=== PATIENT | female | born 1975 | race Two or more races ===

== ENCOUNTER 2016-12-13 15:37 | Outpatient (CLI) | payer OTHER ==
[2016-12-13] MEDS ORDERED: PREN1TAB13 PO (15:55)
[2016-12-13] MEDS ORDERED: FER325 PO (15:55)
--- NOTE | 2016-12-13 16:24 | RADRPT ---
PROCEDURE: OB ultrasound CLINICAL INDICATION: Gestational diabetes TECHNIQUE: Multiple transverse and longitudinal OB images of the pelvis were obtained. The images were reviewed on a high-resolution PACS workstation. COMPARISON: None FINDINGS: A single live intrauterine is seen. The presentation is vertex. The placenta is grade 2 a nd posterior in location. No evidence of placenta abruption or previa is seen. The heart rate is 145 beats per minute. The amniotic fluid index is 12.8 cm. movement 2 tone 2 breathing 2 Amniotic fluid 2 IMPRESSION: Biophysical profile of 10/04. RPTAT: HPNM Physician Randy Date Time Electronically viewed and signed by Physician Randy on 12/13/2016 16:23 /
--- NOTE | 2016-12-13 17:14 | TRIAGE ---
OB Triage Datetime Report Generated by CPN: 12/13/2016 17:14 Datetime: 12/13/2016 16:59 Stage of : OB Triage Maternal Assessment Level of Consciousness: Fully Conscious Labor Evaluation Frequency: 1UC/HR Monitor Mode: External Duration (sec)2399: 100 Quality: Mild Resting Tone [place]: Relaxed Heart Rate FHR Baseline Rate: 135 Monitor Mode: External US Variability: Moderate 6-25 bpm Accelerations: 15X15 Decelerations: None Category: Category I Pain Assessment Pain Scale: 0 Pain Goal: 3 Vaginal Exam Membrane Status: Intact Vaginal Bleeding: None Datetime: 12/13/2016 16:17 Monitor Mode: External Monitor Mode: External US Datetime: 12/13/2016 15:51 Assessment Type: Triage Maternal Assessment Level of Consciousness: Fully Conscious DTR's/Clonus: DTRs 2+; No Clonus Headache: Denies Blurred Vision: No Respiratory Effort: Unlabored; Regular Rhythm; Equal Expansion Breath Sounds, Left: Clear and Equal Breath Sounds, Right: Clear and Equal Nausea/Vomiting: Denies RUQ Epigastric Pain: Denies Lower Extremities Edema: None Degree: None Upper Extremities Edema: None Degree: None Facial Edema: None Fall Risk Assessment History of Falling: (0) No Secondary Diagnosis: (0) No Ambulatory Aid: (0) Bedrest/Nurse Assist IV Therapy: (0) No Gait: (0) Normal/Bedrest/Immobile Mental Status: (0) Oriented to Own Ability Fall Score: 0 Fall Risk Score Definition: No Risk: No action required Datetime: 12/13/2016 15:49 Time of Arrival: 12/13/2016 15:25 EGA: 31.6 Arrived By: Ambulatory Arrived From: Home Chief Complaint: PT HERE FOR NST/BPP FOR GDM Movement: Present Contractions: Denies/Absent Rupture of Membranes: Denies Vaginal Bleeding: None Vaginal Discharge: Denies Recent Sexual Intercouse: Denies Abdominal Trauma: Not Applicable Patient Complaints: None Time Provider Notified: 12/13/2016 15:25 Provider Notified: ABUSLEME Initial Plan: NST/BPP Datetime: 12/13/2016 15:47 Monitor Mode: External Monitor Mode: External US
--- NOTE | 2016-12-13 17:44 | PN ---
Triage Information Date/Time Reason for visit: NST BPP Weeks of Gestation 31 wks /Para 4/3 Diabetes: gestational Diabetes management: diet controlled Hypertention: none Objective Heart Rate: 140's Contractions: None Disposition: Discharge Assessment/Plan NST reactive bpp 10/04 RAFAEL TEJADA M.D. Dec 13, 2016 17:43
== END 2016-12-13 17:20 | disposition home or self-care (01) ==
LOC: OBT 15:37 → L-D 15:39 → OBT 17:20
PROVIDERS: ATTEND Obstetrics & Gynecology
DX: O24.415 Gestational diabetes mellitus in pregnancy, controlled by oral hypoglycemic drugs (principal); Z3A.31 31 weeks gestation of pregnancy
CPT/HCPCS: 76818; Z7500; G0463

== ENCOUNTER 2016-12-20 11:50 | Outpatient (CLI) | payer OTHER ==
[~2016-12-20] VITALS: Ht 157.5 cm; Wt 78.5 kg
[~2016-12-20 11:50] MED LIST: FER325 PO; PREN1TAB13 PO
[2016-12-20 12:05] VITALS: Ht 157.5 cm; Wt 78.5 kg
[2016-12-20 12:06] VITALS: BP 113/67; PULSE 82; RESP 18
--- NOTE | 2016-12-20 13:16 | RADRPT ---
PROCEDURE: OB ultrasound for biophysical profile CLINICAL INDICATION: Decreased movement TECHNIQUE: Multiple sonographic images of the pelvis were obtained. Transabdominal views of the g ravid uterus are available for review. The images were reviewed on a PACS workstation. COMPARISON: Biophysical profile dated 12/13/2016 FINDINGS: breathing movement = 2/2 tone = 2/2 motion = 2/2 CURTIS = 2/2 CURTIS = 14.3 cm Single live intrauterine with cardiac activity of 166 bpm. position is cephal ic. The placenta is posterior. IMPRESSION: 1. Single live intrauterine gestation. 2. Biophysical profile = 8. 3. CURTIS = 14.3 cm. RPTAT: HH .Jennifer Gomez MD, Date Time Electronically viewed and signed by .Jennifer Gomez MD, on 12/20/2016 13:16 .G/
--- NOTE | 2016-12-20 14:07 | PN ---
Triage Information Date/Time Reason for visit: NST/BPP Weeks of Gestation 33+ /Para ... Diabetes: gestational Diabetes management: diet controlled Hypertention: none Objective Vital Signs Date Time Temp Pulse Resp B/P Pulse Ox O2 Delivery O2 Flow Rate FiO2 12/20/16 12:06 98.2 82 18 113/67 Room Air Heart Rate: 140's Contractions: None Disposition: Discharge Assessment/Plan Follow up in 1 weeks for NST BPP Patient 's private physician is following her up Precautions discussed with patient RAFAEL TEJADA M.D. Dec 20, 2016 14:07
--- NOTE | 2016-12-20 17:34 | TRIAGE ---
OB Triage Datetime Report Generated by CPN: 12/20/2016 17:34 Datetime: 12/20/2016 13:18 Labor Evaluation Monitor Mode: External Resting Tone [place]: Relaxed Heart Rate FHR Baseline Rate: 135 Monitor Mode: External US FHR Baseline Changes: No Baseline Change Variability: Moderate 6-25 bpm Accelerations: 15X15 Decelerations: None Category: Category I Comments: NST DONE Pain Assessment Pain Presence: None/Denies Datetime: 12/20/2016 12:52 Time of Arrival: 12/20/2016 11:45 EGA: 32.6 Arrived By: Ambulatory Arrived From: Home Chief Complaint: Repeat BPP/NST Movement: Present Contractions: Denies/Absent Rupture of Membranes: Denies Vaginal Discharge: Denies Recent Sexual Intercouse: Denies Abdominal Trauma: Not Applicable Patient Complaints: None Time Provider Notified: 12/20/2016 13:54 Provider Notified: Abusleme Initial Plan: Repeat BPP/NST Datetime: 12/20/2016 12:50 Comments: Pt has been on the monitor since 1200 but monitor not connecting with desktop CPN. Kuldeep from [employer] at bedside and fixed issue now. FHR has been CAT throughout the time pt has been o n the monitor Datetime: 12/20/2016 12:15 Stage of : Antepartum Assessment Type: Triage Maternal Assessment Level of Consciousness: Fully Conscious DTR's/Clonus: DTRs 2+; No Clonus Headache: Denies Blurred Vision: No Respiratory Effort: Unlabored; Regular Rhythm; Equal Expansion Breath Sounds, Left: Clear and Equal Breath Sounds, Right: Clear and Equal Nausea/Vomiting: Denies RUQ Epigastric Pain: Denies Lower Extremities Edema: None Degree: None Upper Extremities Edema: None Degree: None Facial Edema: None Temperature Route: Oral Fall Risk Assessment History of Falling: (0) No Secondary Diagnosis: (0) No Ambulatory Aid: (0) Bedrest/Nurse Assist IV Therapy: (0) No Gait: (0) Normal/Bedrest/Immobile Mental Status: (0) Oriented to Own Ability Fall Score: 0 Fall Risk Score Definition: No Risk: No action required Datetime: 12/13/2016 15:51 Fall Score: 0 Fall Risk Score Definition: No Risk: No action required Datetime: 12/13/2016 15:49 EGA: 31.6
== END 2016-12-20 14:10 | disposition home or self-care (01) ==
LOC: OBG 11:50 → OBT 11:50
PROVIDERS: ATTEND Obstetrics & Gynecology
DX: O24.410 Gestational diabetes mellitus in pregnancy, diet controlled (principal); Z3A.33 33 weeks gestation of pregnancy
CPT/HCPCS: 76818

== ENCOUNTER 2016-12-27 08:44 | Outpatient (CLI) | payer OTHER ==
[~2016-12-27] VITALS: Ht 157.5 cm; Wt 79.3 kg
[2016-12-27 09:02] VITALS: Ht 157.5 cm; Wt 79.3 kg
[2016-12-27 09:03] VITALS: BP 114/62; PULSE 85; RESP 16
--- NOTE | 2016-12-27 09:30 | RADRPT ---
PROCEDURE: OB ultrasound for biophysical profile CLINICAL INDICATION: Gestational diabetes TECHNIQUE: Multiple sonographic images of the pelvis were obtained. Transabdominal views of the g ravid uterus are available for review. The images were reviewed on a PACS workstation. COMPARISON: Biophysical profile dated 12/20/2016 FINDINGS: breathing movement = 2/2 tone = 2/2 motion = 2/2 CURTIS = 2/2 CURTIS = 14.8 cm Single live intrauterine with cardiac activity of 139 bpm. position is cephal ic. The placenta is posterior. IMPRESSION: 1. Single live intrauterine gestation. 2. Biophysical profile = 10/04. 3. CURTIS = 14.8 cm. RPTAT: HH .Jennifer Gomez MD, Date Time Electronically viewed and signed by .Jennifer Gomez MD, on 12/27/2016 09:29 .G/
--- NOTE | 2016-12-27 10:21 | PN ---
Triage Information Date/Time Reason for visit: NST BPP Weeks of Gestation 33+ /Para 4/3 Diabetes: gestational Diabetes management: diet controlled Hypertention: none Objective Vital Signs Date Time Temp Pulse Resp B/P Pulse Ox O2 Delivery O2 Flow Rate FiO2 12/27/16 09:03 98.1 85 16 114/62 Heart Rate: 140's Contractions: None Disposition: Discharge Assessment/Plan Reactive NST &BPP 10/04 Discharged with precautions Precautions reviewed with patient RAFAEL TEJADA M.D. Dec 27, 2016 10:21
--- NOTE | 2016-12-27 10:58 | TRIAGE ---
OB Triage Datetime Report Generated by CPN: 12/27/2016 10:58 Datetime: 12/27/2016 09:13 Heart Rate FHR Baseline Rate: 135 Monitor Mode: External US Variability: Moderate 6-25 bpm Accelerations: 15X15 Decelerations: None Category: Category I Comments: nst reactive Datetime: 12/27/2016 09:01 Assessment Type: Triage Maternal Assessment Level of Consciousness: Fully Conscious DTR's/Clonus: DTRs 2+; No Clonus Headache: Denies Blurred Vision: No Respiratory Effort: Unlabored; Regular Rhythm; Equal Expansion Breath Sounds, Left: Clear and Equal Breath Sounds, Right: Clear and Equal Nausea/Vomiting: Denies RUQ Epigastric Pain: Denies Lower Extremities Edema: None Degree: None Upper Extremities Edema: None Degree: None Facial Edema: None Fall Risk Assessment History of Falling: (0) No Secondary Diagnosis: (0) No Ambulatory Aid: (0) Bedrest/Nurse Assist IV Therapy: (0) No Gait: (0) Normal/Bedrest/Immobile Mental Status: (0) Oriented to Own Ability Fall Score: 0 Fall Risk Score Definition: No Risk: No action required Datetime: 12/27/2016 09:00 Time of Arrival: 12/27/2016 08:35 EGA: 33.6 Arrived By: Ambulatory Arrived From: Home Chief Complaint: Follow up for nst and bpp due to GDM Movement: Present Contractions: Denies/Absent Rupture of Membranes: Denies Vaginal Bleeding: None Vaginal Discharge: Denies Recent Sexual Intercouse: Denies Abdominal Trauma: Not Applicable Patient Complaints: None Additional Patient Complaints: fbs 85 Initial Plan: NST, BPP Datetime: 12/20/2016 12:52 EGA: 32.6 Datetime: 12/20/2016 12:15 Fall Score: 0 Fall Risk Score Definition: No Risk: No action required Datetime: 12/13/2016 15:51 Fall Score: 0 Fall Risk Score Definition: No Risk: No action required Datetime: 12/13/2016 15:49 EGA: 31.6
== END 2016-12-27 10:20 | disposition home or self-care (01) ==
LOC: OBT 08:44 → L-D 08:44 → OBT 10:20
PROVIDERS: ATTEND Obstetrics & Gynecology
DX: O24.410 Gestational diabetes mellitus in pregnancy, diet controlled (principal); Z3A.33 33 weeks gestation of pregnancy
CPT/HCPCS: 76818; Z7500; G0463

== ENCOUNTER 2017-01-03 09:37 | Outpatient (CLI) | payer OTHER ==
[~2017-01-03] VITALS: Ht 160 cm; Wt 80.1 kg
[2017-01-03 09:43] VITALS: BP 125/75; PULSE 85; RESP 18; Ht 160 cm; Wt 80.1 kg
--- NOTE | 2017-01-03 10:28 | RADRPT ---
PROCEDURE: US OB biophysical profile. CLINICAL INDICATION: evaluation TECHNIQUE: Multiple sonographic images of the pelvis were obtained. The images were reviewed on a PACS workstation. COMPARISON: No prior studies are available for comparison. FINDINGS: There is a single viable intrauterine gestation. Cardiac activity is present with 159 beats per min [place]. There is a vertex presentation. The placenta is fundal and left lateral in location. There is no evidence of placental abruption. There is a normal amount of amniotic fluid with an CURTIS = 13.6 cm. Biophysical profile: movement 2/2 tone 2/2. breathing 2/2 CURTIS 2/2 Total 10/04 RPTAT: AA . IMPRESSION: Normal biophysical profile. Physician Lucita Date Time Electronically viewed and signed by Physician Lucita on 01/03/2017 10:27 /
--- NOTE | 2017-01-03 10:53 | PN ---
Triage Information Date/Time Reason for visit: NST BPP Weeks of Gestation 34+ /Para .. Diabetes: gestational Diabetes management: diet controlled Hypertention: none Objective Vital Signs Date Time Temp Pulse Resp B/P Pulse Ox O2 Delivery O2 Flow Rate FiO2 01/03/17 09:43 98.2 85 18 125/75 99 Room Air Heart Rate: 140's Contractions: None Disposition: Discharge Assessment/Plan NST reassuring BPP 10/04 Instructions given,F/u with provider RAFAEL TEJADA M.D. Jan 03, 2017 10:53
--- NOTE | 2017-01-03 11:22 | TRIAGE ---
OB Triage Datetime Report Generated by CPN: 01/03/2017 11:22 Datetime: 01/03/2017 11:03 Stage of : OB Triage Maternal Assessment Level of Consciousness: Fully Conscious DTR's/Clonus: DTRs 1+ Headache: Denies Breath Sounds, Left: Clear and Equal Breath Sounds, Right: Clear and Equal Labor Evaluation Frequency: 0 Monitor Mode: External Resting Tone [employer]: Relaxed Heart Rate FHR Baseline Rate: 140 Monitor Mode: External US Variability: Moderate 6-25 bpm Accelerations: 15X15 Decelerations: None Pain Assessment Pain Scale: 0 Pain Presence: None/Denies Pain Type: N/A Pain Goal: 3 Vaginal Exam Membrane Status: Intact Datetime: 01/03/2017 10:57 Stage of : OB Triage Maternal Assessment Level of Consciousness: Fully Conscious DTR's/Clonus: DTRs 1+ Headache: Denies Breath Sounds, Left: Clear and Equal Breath Sounds, Right: Clear and Equal Nausea/Vomiting: Denies RUQ Epigastric Pain: Denies Labor Evaluation Frequency: 0 Monitor Mode: External Resting Tone [employer]: Relaxed Heart Rate FHR Baseline Rate: 140 Monitor Mode: External US Variability: Moderate 6-25 bpm Accelerations: 15X15 Decelerations: None Category: Category I Pain Assessment Pain Scale: 0 Pain Presence: None/Denies Pain Type: N/A Pain Goal: 3 Vaginal Exam Membrane Status: Intact Datetime: 01/03/2017 10:13 Stage of : OB Triage Maternal Assessment Level of Consciousness: Fully Conscious DTR's/Clonus: DTRs 1+ Headache: Denies Breath Sounds, Left: Clear and Equal Breath Sounds, Right: Clear and Equal Nausea/Vomiting: Denies RUQ Epigastric Pain: Denies Labor Evaluation Frequency: 0 Monitor Mode: External Resting Tone [employer]: Relaxed Heart Rate FHR Baseline Rate: 140 Monitor Mode: External US Variability: Moderate 6-25 bpm Accelerations: 15X15 Decelerations: None Category: Category I Pain Assessment Pain Scale: 0 Pain Presence: None/Denies Pain Type: N/A Pain Goal: 3 Vaginal Exam Membrane Status: Intact Datetime: 01/03/2017 10:03 Maternal Assessment Level of Consciousness: Fully Conscious DTR's/Clonus: DTRs 1+ Headache: Denies Blurred Vision: No Respiratory Effort: Unlabored Breath Sounds, Left: Clear and Equal Breath Sounds, Right: Clear and Equal Nausea/Vomiting: Denies RUQ Epigastric Pain: Denies Facial Edema: None Labor Evaluation Frequency: 0 Monitor Mode: External Resting Tone [employer]: Relaxed Heart Rate FHR Baseline Rate: 140 Monitor Mode: External US Variability: Moderate 6-25 bpm Accelerations: 15X15 Decelerations: None Category: Category I Pain Assessment Pain Scale: 0 Pain Presence: None/Denies Pain Type: N/A Pain Goal: 3 Vaginal Exam Membrane Status: Intact Datetime: 01/03/2017 09:42 Assessment Type: Triage Maternal Assessment Level of Consciousness: Fully Conscious DTR's/Clonus: DTRs 2+; No Clonus Headache: Denies Blurred Vision: No Respiratory Effort: Unlabored; Regular Rhythm; Equal Expansion Breath Sounds, Left: Clear and Equal Breath Sounds, Right: Clear and Equal Nausea/Vomiting: Denies RUQ Epigastric Pain: Denies Lower Extremities Edema: None Degree: None Upper Extremities Edema: None Degree: None Facial Edema: None Fall Risk Assessment History of Falling: (0) No Secondary Diagnosis: (0) No Ambulatory Aid: (0) Bedrest/Nurse Assist IV Therapy: (0) No Gait: (0) Normal/Bedrest/Immobile Mental Status: (0) Oriented to Own Ability Fall Score: 0 Fall Risk Score Definition: No Risk: No action required Datetime: 01/03/2017 09:33 Time of Arrival: 01/03/2017 09:33 EGA: 34.6 Arrived By: Ambulatory Arrived From: Home Chief Complaint: NST AND BPP FOR GDM Movement: Present Contractions: Denies/Absent Rupture of Membranes: Denies Vaginal Discharge: Denies Recent Sexual Intercouse: Denies Abdominal Trauma: Not Applicable Additional Patient Complaints: NONE Time Provider Notified: 01/03/2017 09:45 Provider Notified: ABUSELEME Initial Plan: NST AND BPP Datetime: 12/27/2016 09:01 Fall Score: 0 Fall Risk Score Definition: No Risk: No action required Datetime: 12/27/2016 09:00 EGA: 33.6 Datetime: 12/20/2016 12:52 EGA: 32.6 Datetime: 12/20/2016 12:15 Fall Score: 0 Fall Risk Score Definition: No Risk: No action required Datetime: 12/13/2016 15:51 Fall Score: 0 Fall Risk Score Definition: No Risk: No action required Datetime: 12/13/2016 15:49 EGA: 31.6
== END 2017-01-03 11:05 | disposition home or self-care (01) ==
LOC: L-D 09:37 → OBT 09:37
PROVIDERS: ATTEND Obstetrics & Gynecology
DX: O24.410 Gestational diabetes mellitus in pregnancy, diet controlled (principal); Z3A.34 34 weeks gestation of pregnancy
CPT/HCPCS: 76818; Z7500; G0463

== ENCOUNTER 2017-01-10 09:20 | Outpatient (CLI) | payer OTHER ==
[~2017-01-10] VITALS: Ht 162.6 cm; Wt 81.4 kg
[2017-01-10 09:52] VITALS: BP 123/63; PULSE 90; Ht 162.6 cm; Wt 81.4 kg
--- NOTE | 2017-01-10 10:45 | RADRPT ---
PROCEDURE: US OB biophysical profile. CLINICAL INDICATION: Biophysical profile. History of gestational diabetes TECHNIQUE: Multiple sonographic images of the pelvis were obtained. The images were reviewed on a PACS workstation. COMPARISON: January 03, 2017 FINDINGS: There is a single live intrauterine , in cephalic presentation. A normal heart rate i s identified measuring 141 beats per minute. The amniotic fluid index is within normal limits measur ing 15.8 cm. The placenta is grade II, located fundally Biophysical profile: movement 2/2 tone 2/2. breathing 2/2 CURTIS 2/2 Total 8 IMPRESSION: 1. Biophysical profile score of 8/8. 2. Single live intrauterine in cephalic presentation with normal heart rate of 141 b pm. 3. Normal amniotic fluid index of 15.8 cm. Physician Konrad Date Time Electronically viewed and signed by Physician Konrad on 01/10/2017 10:45 JL/
--- NOTE | 2017-01-10 12:47 | TRIAGE ---
OB Triage Datetime Report Generated by CPN: 01/10/2017 12:46 Datetime: 01/10/2017 11:51 Stage of : OB Triage Datetime: 01/10/2017 11:46 Stage of : OB Triage Datetime: 01/10/2017 11:44 Bedside Blood Glucose: 102 Datetime: 01/10/2017 11:37 Stage of : OB Triage Datetime: 01/10/2017 11:21 Labor Evaluation Frequency: 0 Monitor Mode: External Pattern: Normal: <= 5 Contractions in 10 Minutes Resting Tone [place]: Relaxed Heart Rate FHR Baseline Rate: 145 Monitor Mode: External US Variability: Moderate 6-25 bpm Accelerations: 10X10 Decelerations: None Category: Category I Pain Assessment Pain Scale: 0 Pain Presence: None/Denies Pain Type: N/A Pain Goal: 3 Pain Relief Measures: Comfort Measures Datetime: 01/10/2017 09:48 Stage of : OB Triage Assessment Type: Triage Maternal Assessment Level of Consciousness: Fully Conscious DTR's/Clonus: DTRs 2+; No Clonus Headache: Denies Blurred Vision: No Respiratory Effort: Unlabored; Regular Rhythm; Equal Expansion Breath Sounds, Left: Clear and Equal Breath Sounds, Right: Clear and Equal Nausea/Vomiting: Denies RUQ Epigastric Pain: Denies Facial Edema: None Temperature Route: Axillary Fall Risk Assessment History of Falling: (0) No Secondary Diagnosis: (0) No Ambulatory Aid: (0) Bedrest/Nurse Assist IV Therapy: (0) No Gait: (0) Normal/Bedrest/Immobile Mental Status: (0) Oriented to Own Ability Fall Score: 0 Fall Risk Score Definition: No Risk: No action required Labor Evaluation Frequency: 0 Monitor Mode: External Resting Tone [place]: Relaxed Heart Rate FHR Baseline Rate: 135 Monitor Mode: External US Variability: Moderate 6-25 bpm Accelerations: 10X10 Decelerations: None Category: Category I Pain Assessment Pain Scale: 0 Pain Presence: None/Denies Pain Type: N/A Pain Goal: 3 Pain Relief Measures: Comfort Measures Datetime: 01/10/2017 09:47 Time of Arrival: 01/10/2017 09:14 EGA: 35.6 Arrived By: Ambulatory Arrived From: Home Chief Complaint: FOLLOW UP NST/BPP GDM, DENIES LEAKING, BLEEDING OR UC'S Movement: Present Contractions: Denies/Absent Rupture of Membranes: Denies Vaginal Bleeding: None Vaginal Discharge: Denies Recent Sexual Intercouse: Denies Abdominal Trauma: Not Applicable Patient Complaints: None Time Provider Notified: 01/10/2017 11:46 Provider Notified: ABUSLEME Initial Plan: MONITOR, BPP/CURTIS Datetime: 01/03/2017 11:03 Nausea/Vomiting: Denies RUQ Epigastric Pain: Denies Heart Rate FHR Baseline Rate: 150 Datetime: 01/03/2017 10:57 Heart Rate FHR Baseline Rate: 150 Datetime: 01/03/2017 09:42 Fall Score: 0 Fall Risk Score Definition: No Risk: No action required Datetime: 01/03/2017 09:33 EGA: 34.6 Datetime: 12/27/2016 09:01 Fall Score: 0 Fall Risk Score Definition: No Risk: No action required Datetime: 12/27/2016 09:00 EGA: 33.6 Datetime: 12/20/2016 12:52 EGA: 32.6 Datetime: 12/20/2016 12:15 Fall Score: 0 Fall Risk Score Definition: No Risk: No action required Datetime: 12/13/2016 15:51 Fall Score: 0 Fall Risk Score Definition: No Risk: No action required Datetime: 12/13/2016 15:49 EGA: 31.6
--- NOTE | 2017-01-10 14:39 | PN ---
Triage Information Date/Time Reason for visit: NST BPP Weeks of Gestation 35+ /Para 4/3 Diabetes: gestational Diabetes management: diet controlled Hypertention: none Objective Vital Signs Date Time Temp Pulse Resp B/P Pulse Ox O2 Delivery O2 Flow Rate FiO2 01/10/17 09:52 98.0 90 123/63 Contractions: None Results/Medications Results 24 hrs Laboratory Tests Test 01/10/17 11:44 Bedside Glucose 102 Disposition: Discharge RAFAEL TEJADA M.D. Jan 10, 2017 14:39
--- NOTE | 2017-01-10 14:41 | PN ---
Triage Information Date/Time Reason for visit: DFM Weeks of Gestation 28+ /Para 5/4 Diabetes: none Hypertention: none Objective Vital Signs Date Time Temp Pulse Resp B/P Pulse Ox O2 Delivery O2 Flow Rate FiO2 01/10/17 09:52 98.0 90 123/63 Heart Rate: 140's Contractions: None Results/Medications Results 24 hrs Laboratory Tests Test 01/10/17 11:44 Bedside Glucose 102 Disposition: Discharge Assessment/Plan +FM at this time No VB No LOF BPP 10/04 Discharged with precautions Patient's questions answered RAFAEL TEJADA M.D. Jan 10, 2017 14:41
== END 2017-01-10 12:00 | disposition home or self-care (01) ==
LOC: L-D 09:20 → OBT 09:20
PROVIDERS: ATTEND Obstetrics & Gynecology
DX: O24.410 Gestational diabetes mellitus in pregnancy, diet controlled (principal); O09.523 Supervision of elderly multigravida, third trimester; Z3A.35 35 weeks gestation of pregnancy
CPT/HCPCS: 76818; 82962; Z7500; G0463

== ENCOUNTER 2017-01-17 12:57 | Outpatient (CLI) | payer OTHER ==
[~2017-01-17] VITALS: Ht 162.6 cm; Wt 82.0 kg
[2017-01-17 13:15] VITALS: Ht 162.6 cm; Wt 82.0 kg
[2017-01-17 13:16] VITALS: BP 121/78; PULSE 85; RESP 18
--- NOTE | 2017-01-17 13:59 | RADRPT ---
PROCEDURE: US OB biophysical profile. CLINICAL INDICATION: decreased movements, GDM TECHNIQUE: Multiple sonographic images of the pelvis were obtained. The images were reviewed on a PACS workstation. COMPARISON: US PELVIS 01/10/2017 FINDINGS: There is a single viable intrauterine gestation. Cardiac activity is present with 137 beats per min [place]. There is a vertex presentation. The placenta is fundal left. There is no evidence of placental abruption. There is a normal amount of amniotic fluid with an CURTIS = 12.8 cm. Biophysical profile: movement 2/2 tone 2/2. breathing 2/2 CURTIS 2/2 Total 10/04 RPTAT: AA . IMPRESSION: Normal biophysical profile. . .Prabhjot Solares MD, MD Date Time Electronically viewed and signed by .Prabhjot Solares MD, on 01/17/2017 13:59 .S/
--- NOTE | 2017-01-17 15:14 | PN ---
Triage Information Date/Time Reason for visit: NST BPP Weeks of Gestation 36+ /Para .. Diabetes: gestational Diabetes management: diet controlled Hypertention: none Objective Vital Signs Date Time Temp Pulse Resp B/P Pulse Ox O2 Delivery O2 Flow Rate FiO2 01/17/17 13:16 97.8 85 18 121/78 98 Room Air Heart Rate: 140's Contractions: None Disposition: Discharge RAFAEL TEJADA M.D. Jan 17, 2017 15:14
--- NOTE | 2017-01-17 15:14 | TRIAGE ---
OB Triage Datetime Report Generated by CPN: 01/17/2017 15:14 Datetime: 01/17/2017 14:00 Stage of : OB Triage Maternal Assessment Level of Consciousness: Fully Conscious Labor Evaluation Frequency: 3UC/HR Monitor Mode: External Duration (sec)2399: 80-120 Quality: Mild Resting Tone [place]: Relaxed Heart Rate FHR Baseline Rate: 145 Monitor Mode: External US Variability: Moderate 6-25 bpm Accelerations: 15X15 Decelerations: None Category: Category I Pain Assessment Pain Scale: 0 Pain Goal: 3 Vaginal Exam Membrane Status: Intact Vaginal Bleeding: None Datetime: 01/17/2017 13:11 Assessment Type: Triage Maternal Assessment Level of Consciousness: Fully Conscious DTR's/Clonus: DTRs 2+; No Clonus Headache: Denies Blurred Vision: No Respiratory Effort: Unlabored; Regular Rhythm; Equal Expansion Breath Sounds, Left: Clear and Equal Breath Sounds, Right: Clear and Equal Nausea/Vomiting: Denies RUQ Epigastric Pain: Denies Lower Extremities Edema: None Degree: None Upper Extremities Edema: None Degree: None Facial Edema: None Fall Risk Assessment History of Falling: (0) No Secondary Diagnosis: (0) No Ambulatory Aid: (0) Bedrest/Nurse Assist IV Therapy: (0) No Gait: (0) Normal/Bedrest/Immobile Mental Status: (0) Oriented to Own Ability Fall Score: 0 Fall Risk Score Definition: No Risk: No action required Datetime: 01/17/2017 13:10 Time of Arrival: 01/17/2017 12:51 EGA: 36.6 Arrived By: Ambulatory Arrived From: Home Chief Complaint: pt here for NST/BPP FOR A1DM Movement: Present Contractions: Denies/Absent Rupture of Membranes: Denies Vaginal Bleeding: None Vaginal Discharge: Denies Recent Sexual Intercouse: Denies Abdominal Trauma: Not Applicable Patient Complaints: None Time Provider Notified: 01/17/2017 15:00 Provider Notified: ABUSLEME Initial Plan: NST/BPP Datetime: 01/17/2017 13:08 Monitor Mode: External Monitor Mode: External US Datetime: 01/10/2017 09:48 Fall Score: 0 Fall Risk Score Definition: No Risk: No action required Datetime: 01/10/2017 09:47 EGA: 35.6 Datetime: 01/03/2017 09:42 Fall Score: 0 Fall Risk Score Definition: No Risk: No action required Datetime: 01/03/2017 09:33 EGA: 34.6 Datetime: 12/27/2016 09:01 Fall Score: 0 Fall Risk Score Definition: No Risk: No action required Datetime: 12/27/2016 09:00 EGA: 33.6 Datetime: 12/20/2016 12:52 EGA: 32.6 Datetime: 12/20/2016 12:15 Fall Score: 0 Fall Risk Score Definition: No Risk: No action required Datetime: 12/13/2016 15:51 Fall Score: 0 Fall Risk Score Definition: No Risk: No action required Datetime: 12/13/2016 15:49 EGA: 31.6
== END 2017-01-17 15:25 | disposition home or self-care (01) ==
LOC: OBT 12:57 → L-D 12:58 → OBT 15:25
PROVIDERS: ATTEND Obstetrics & Gynecology
DX: O24.410 Gestational diabetes mellitus in pregnancy, diet controlled (principal); Z3A.36 36 weeks gestation of pregnancy
CPT/HCPCS: 76818; Z7500; G0463

== ENCOUNTER 2017-01-26 11:34 | Outpatient (CLI) | payer OTHER ==
[~2017-01-26] VITALS: Ht 162.6 cm; Wt 83.4 kg
[~2017-01-26 11:34] MED LIST changes: -FER325 PO
[2017-01-26 12:12] VITALS: BP 130/79; PULSE 77; RESP 18; Ht 162.6 cm; Wt 83.4 kg
--- NOTE | 2017-01-26 12:58 | RADRPT ---
PROCEDURE: US OB biophysical profile. CLINICAL INDICATION: Biophysical profile TECHNIQUE: Multiple sonographic images of the pelvis were obtained. The images were reviewed on a PACS workstation. COMPARISON: None FINDINGS: There is a single live intrauterine , in cephalic presentation. A normal heart rate i s identified measuring 140 beats per minute. The amniotic fluid index is within normal limits measur ing 12.2 cm. Biophysical profile: movement 2/2 tone 2/2. breathing 2/2 CURTIS 2/2 Total 10/04 IMPRESSION: 1. Biophysical profile score of 8/8. 2. Single live intrauterine in cephalic presentation with normal heart rate of 140 b pm. 3. Normal amniotic fluid index of 12.2 cm. RPTAT: AAPP Physician Konrad Date Time Electronically viewed and signed by Physician Konrad on 01/26/2017 12:58 IZZY/
[2017-01-26] MEDS ORDERED: LACTATED RINGER'S 1,000 ML IV ONE (15:30)
--- NOTE | 2017-01-26 17:15 | TRIAGE ---
OB Triage Datetime Report Generated by CPN: 01/26/2017 17:15 Datetime: 01/26/2017 16:30 Stage of : OB Triage Maternal Assessment Level of Consciousness: Fully Conscious Labor Evaluation Frequency: 3-9 Monitor Mode: External Duration (sec)2399: 90-120 Quality: Mild Resting Tone [place]: Relaxed Heart Rate FHR Baseline Rate: 135 Monitor Mode: External US Variability: Moderate 6-25 bpm Accelerations: 15X15 Decelerations: None Pain Assessment Pain Scale: 0 Pain Goal: 3 Membrane Status: Intact Vaginal Bleeding: None Datetime: 01/26/2017 15:30 Stage of : OB Triage Maternal Assessment Level of Consciousness: Fully Conscious Labor Evaluation Frequency: 2-8 Monitor Mode: External Duration (sec)2399: 90-120 Quality: Mild Resting Tone [place]: Relaxed Heart Rate FHR Baseline Rate: 135 Monitor Mode: External US Variability: Moderate 6-25 bpm Accelerations: 15X15 Decelerations: None Pain Assessment Pain Scale: 0 Pain Goal: 3 Membrane Status: Intact Vaginal Bleeding: None Datetime: 01/26/2017 14:30 Stage of : OB Triage Maternal Assessment Level of Consciousness: Fully Conscious Labor Evaluation Frequency: 2-7 Monitor Mode: External Duration (sec)2399: 60-110 Quality: Mild Resting Tone [place]: Relaxed Heart Rate FHR Baseline Rate: 135 Monitor Mode: External US Variability: Moderate 6-25 bpm Accelerations: 15X15 Decelerations: None Pain Assessment Pain Scale: 0 Pain Goal: 3 Membrane Status: Intact Vaginal Bleeding: None Datetime: 01/26/2017 14:00 Stage of : OB Triage Maternal Assessment Level of Consciousness: Fully Conscious Labor Evaluation Frequency: 5-9 Monitor Mode: External Duration (sec)2399: 60-110 Quality: Mild Resting Tone [place]: Relaxed Heart Rate FHR Baseline Rate: 135 Monitor Mode: External US Variability: Moderate 6-25 bpm Accelerations: 15X15 Decelerations: None Pain Assessment Pain Scale: 0 Pain Goal: 3 Membrane Status: Intact Vaginal Bleeding: None Datetime: 01/26/2017 13:00 Stage of : OB Triage Maternal Assessment Level of Consciousness: Fully Conscious Labor Evaluation Frequency: 4UC/HR Monitor Mode: External Duration (sec)2399: 50-90 Quality: Mild Resting Tone [place]: Relaxed Heart Rate FHR Baseline Rate: 135 Monitor Mode: External US Variability: Moderate 6-25 bpm Accelerations: 15X15 Decelerations: None Category: Category I Pain Assessment Pain Scale: 0 Pain Goal: 3 Membrane Status: Intact Vaginal Bleeding: None Datetime: 01/26/2017 12:18 Vaginal Exam Dilatation (cms): 0.0 Station: -3 Exam By: SHANNAN Vaginal Bleeding: None Cervix, Position: Posterior Datetime: 01/26/2017 11:56 Assessment Type: Triage Maternal Assessment Level of Consciousness: Fully Conscious DTR's/Clonus: DTRs 2+; No Clonus Headache: Denies Blurred Vision: No Respiratory Effort: Unlabored; Regular Rhythm; Equal Expansion Breath Sounds, Left: Clear and Equal Breath Sounds, Right: Clear and Equal Nausea/Vomiting: Denies RUQ Epigastric Pain: Denies Lower Extremities Edema: None Degree: None Upper Extremities Edema: None Degree: None Facial Edema: None Fall Risk Assessment History of Falling: (0) No Secondary Diagnosis: (0) No Ambulatory Aid: (0) Bedrest/Nurse Assist IV Therapy: (0) No Gait: (0) Normal/Bedrest/Immobile Mental Status: (0) Oriented to Own Ability Fall Score: 0 Fall Risk Score Definition: No Risk: No action required Datetime: 01/26/2017 11:55 Time of Arrival: 01/26/2017 11:33 EGA: 38.1 Arrived By: Ambulatory Arrived From: Home Chief Complaint: PT HERE C/O UC'S Movement: Present Contractions: Irregular Time Contractions Began: 01/25/2017 19:00 Rupture of Membranes: Denies Vaginal Bleeding: None Vaginal Discharge: Present Recent Sexual Intercouse: Yes Abdominal Trauma: Not Applicable Patient Complaints: Contractions; Cramping; Back Pain Time Provider Notified: 01/26/2017 13:30 Provider Notified: ABUSLEME Initial Plan: EFM/SVE Datetime: 01/26/2017 11:53 Monitor Mode: External Monitor Mode: External US Datetime: 01/17/2017 15:00 Stage of : OB Triage Maternal Assessment Level of Consciousness: Fully Conscious Labor Evaluation Frequency: 3UC/HR Monitor Mode: External Duration (sec)2399: 90-120 Quality: Mild Resting Tone [place]: Relaxed Heart Rate FHR Baseline Rate: 135 Monitor Mode: External US Variability: Moderate 6-25 bpm Accelerations: 15X15 Decelerations: None Pain Assessment Pain Scale: 0 Pain Goal: 3 Membrane Status: Intact Vaginal Bleeding: None Datetime: 01/17/2017 13:11 Fall Score: 0 Fall Risk Score Definition: No Risk: No action required Datetime: 01/17/2017 13:10 EGA: 36.6 Datetime: 01/10/2017 09:48 Fall Score: 0 Fall Risk Score Definition: No Risk: No action required Datetime: 01/10/2017 09:47 EGA: 35.6 Datetime: 01/03/2017 09:42 Fall Score: 0 Fall Risk Score Definition: No Risk: No action required Datetime: 01/03/2017 09:33 EGA: 34.6 Datetime: 12/27/2016 09:01 Fall Score: 0 Fall Risk Score Definition: No Risk: No action required Datetime: 12/27/2016 09:00 EGA: 33.6 Datetime: 12/20/2016 12:52 EGA: 32.6 Datetime: 12/20/2016 12:15 Fall Score: 0 Fall Risk Score Definition: No Risk: No action required Datetime: 12/13/2016 15:51 Fall Score: 0 Fall Risk Score Definition: No Risk: No action required Datetime: 12/13/2016 15:49 EGA: 31.6
--- NOTE | 2017-01-26 20:37 | CONS ---
Date/Time of Note Date/Time of Note DATE: 01/26/17 TIME: 20:27 Consultation Date/Type/Reason Admit Date/Time January 26, 2017 OB triage consult This patient is a 41 years old 4 para 3 living 3 who delivered vaginally with date of confinement of February 08, 2017 which makes her 38 weeks and 1 day. She came to triage complaining of a contraction and possible labor she has a gestational diabetes mellitus diet controlled On examination she is a well-developed well-nourished . Her general vital signs are close to normal with blood pressure of 130/79, pulse rate of 77, respiration 18,, temperature 98.5, oxygen saturation at room temperature of 98%. Her contractions were fairly rare every 5-6 minutes mild contractions on pelvic examination at 12:00 the cervix was closed thick and hollowing with intact membrane Reason for Consultation Current Medications Medications (Trade) Dose Ordered Sig/[place] Route PRN Reason Start Time Stop Time Status Last Admin Dose Admin Lactated Ringer's (Lr) 1,000 ml @ 1,000 mls/hr Q1H ONCE IV 01/26/17 15:30 01/26/17 16:29 DC 01/26/17 15:12 1,000 MLS/HR Constitutional: No chills, No diaphoresis, No disoriented, No febrile, No improved, No no complaints, No other, No poor po, No requiring IVF, No requiring O2 Eyes: No discharge, No no complaints, No other, No pain, No redness, No visual change ENT: No bleeding, No congestion, No discharge, No dysphagia, No no complaints, No other, No pain, No sore throat Respiratory: No cough, No no complaints, No other, No pain, No pleuritic pain, No shortness of breath, No sputum, No wheezing Cardiovascular: No chest pain, No edema, No lightheadedness, No no complaints, No orthopenea, No other, No palpitations, No paroxysmal nocturnal dyspnea Gastrointestinal: No blood, No constipation, No decreased appetite, No diarrhea , No flatus, No nausea, No no complaints, No other, No pain, No passing stool, No vomiting Genitourinary: other (As I mentioned on her first pelvic exam the cervix was closed thick and high), No bleeding, No discharge, No dysuria, No flank pain, No hematuria, No no complaints Musculoskeletal: No back pain, No bone/joint pain, No neck pain, No no complaints, No other, No restricted range of motion, No swelling Skin: No bruising, No erythema, No laceration, No no complaints, No other, No pruritis, No rash, No skin lesions Neurologic: No confusion, No dizziness, No focal-weakness, No headache, No no complaints, No other, No seizure, No syncope Endocrine: No dry skin, No no complaints, No other, No polydypsia, No polyuria , No temp intolerance Lymphatic: No adenopathy, No lymphadema, No no complaints, No other, No tender nodes Additional Comments Her NST was reactive with good variability occasional acceleration and no decelerations. On ultrasound study report is single live intrauterine in cephalic presentation heartbeat 140 bpm biophysical profile was reported 10/04. Amniotic fluid index was 12.2 cm Patient was given hydration and her pelvic exam was repeated at 14.45 and it was unchanged Disposition due to lack of evidence of active labor and normal ultrasound studies patient was discharged home with instruction to rest at home to care count and if active labor or vaginal bleeding or evidence of rupture membrane return immediately to OB triage. Social History Smoking Status: Never smoker Exam/Review of Systems Vital Signs Vitals Vital Signs Date Time Temp Pulse Resp B/P Pulse Ox O2 Delivery O2 Flow Rate FiO2 01/26/17 12:12 98.5 77 18 130/79 Room Air GEOVANNI TAYLOR MD Jan 26, 2017 20:37
== END 2017-01-26 17:21 | disposition home or self-care (01) ==
LOC: OBT 11:34 → L-D 11:34 → OBT 17:21
PROVIDERS: ATTEND Obstetrics & Gynecology
DX: O62.9 Abnormality of forces of labor, unspecified (principal); O24.410 Gestational diabetes mellitus in pregnancy, diet controlled; Z3A.38 38 weeks gestation of pregnancy
CPT/HCPCS: 36415; 76818; 96360; 96361; J7120; Z7500; G0463

== ENCOUNTER 2017-01-30 11:24 | Inpatient (IN) | payer OTHER ==
[~2017-01-30] VITALS: Ht 165.1 cm; Wt 82.3 kg
[2017-01-30] MEDS ORDERED: MAGNESIUM SULFATE 20 GM/500 ML 500 ML IV SCH (12:03)
[2017-01-30] MEDS ORDERED: DINOPROSTONE 10 MG VAG SUPP VAG ONE (12:30)
[2017-01-30] MEDS ORDERED: MAGNESIUM SULFATE 4 GM/100 ML 100 ML IV ONE (12:30)
[2017-01-30 12:31] VITALS: BMI 35.6
[2017-01-30 12:32] VITALS: BP 120/80; PULSE 75; RESP 18
[2017-01-30 12:32] LABS: BASOPHIL # 0.1 10^3/ul (0.0-0.1); BASOPHILS % 0.6 % (0.0-2.0); EOSINOPHILS # 0.1 10^3/ul (0.0-0.5); EOSINOPHILS % 1.8 % (0.0-7.0); HEMATOCRIT 42.8 % (37.0-47.0); HEMOGLOBIN 14.9 g/dl (12.0-16.0); LYMPHOCYTES # 1.6 10^3/ul (0.8-2.9); LYMPHOCYTES % 19.5 % (15.0-51.0); MEAN CORPUSCULAR HEMOGLOBIN 30.9 pg (29.0-33.0); MEAN CORPUSCULAR HGB CONC 34.8 g/dl (32.0-37.0); MEAN CORPUSCULAR VOLUME 88.8 fl (82.0-101.0); MEAN PLATELET VOLUME 12.1 fl (7.4-10.4); MONOCYTE # 0.6 10^3/ul (0.3-0.9); MONOCYTES % 6.9 % (0.0-11.0); NEUTROPHIL # 5.6 10^3/ul (1.6-7.5); NEUTROPHILS % 70.2 % (39.0-77.0); PLATELET COUNT 177 10^3/UL (140-415); RED BLOOD COUNT 4.82 10^6/ul (4.20-5.40); RED CELL DISTRIBUTION WIDTH 13.6 % (11.5-14.5); WHITE BLOOD COUNT 7.9 10^3/ul (4.8-10.8)
[2017-01-30] MEDS ORDERED: LABE100T3 PO (12:34)
[2017-01-30] MEDS ORDERED: FER325 PO (12:35)
[2017-01-30] MEDS ORDERED: ASPI81TA3 PO (12:35)
[2017-01-30 12:36] LABS: INR 0.82; PROTIME 11.3 Sec (11.9-14.9); PT RATIO 0.9
--- NOTE | 2017-01-30 13:20 | RADRPT ---
PROCEDURE: US OB. CLINICAL INDICATION: Size and dates , diabetes TECHNIQUE: Multiple sonographic images of the pelvis and gravid uterus were obtained. The images were reviewed on a PACS workstation. COMPARISON: No prior studies are available for comparison. FINDINGS: There is a single viable intrauterine gestation. Cardiac activity is present with 137 beats per min [place]. There is a vertex presentation. The placenta is left lateral. There is no evidence for an abruption or placenta previa. Measurements were made in order to determine age. The results are as follows: BPD =9.0 cm HC =32 cm AC =34.9 cm FL =7.1 cm Estimated gestational age of approximately 37 weeks and 0 days based on ultrasound measurements. Clinical age: 38 weeks and 5 days. The estimated date of delivery is 02/20/17, based on ultrasound measurements. The EFW = 3279 g, 40.8%, based on LMP age. RPTAT: AA IMPRESSION: Single viable intrauterine gestation of approximately 37 weeks and 0 days based on ultrasound measu rements. .Prabhjot Solares MD, MD Date Time Electronically viewed and signed by .Prabhjot Solares MD, on 01/30/2017 13:20 .S/
--- NOTE | 2017-01-30 13:23 | RADRPT ---
PROCEDURE: US biophysical profile. CLINICAL INDICATION: Decreased motion. TECHNIQUE: Multiple sonographic images of the uterus were obtained. The images were revi ewed on a PACS workstation. COMPARISON: 01/26/2017. FINDINGS: There is a single live intrauterine gestation. heart rate is 146 beats per minute. The position is cephalic. The placenta is left lateral grade II with no abruption or previa. The CURTIS is 14.7 cm. (Normal = 5-20 cm.) Breathing Movement: 2 Gross Body Movement: 2 Tone: 2 Qualitative Amniotic Fluid Volume: 2 TOTAL: 8 IMPRESSION: 1. The biophysical score is 8/8. RPTAT: QQ .Rogerio Quiros MD, MD Date Time Electronically viewed and signed by .Rogerio Quiros MD, on 01/30/2017 13:23 .R/
[2017-01-30] MEDS: LACTATED RINGER'S 1,000 ML IV SCH ×6 (14:30→20:03)
[2017-01-30 14:53] VITALS: BMI 30.2
[2017-01-30 14:54] VITALS: BP 153/93; PULSE 65; RESP 20
[2017-01-30 15:00] VITALS: BMI 30.2
[2017-01-30 15:20] VITALS: Ht 165.1 cm; Wt 82.3 kg
[2017-01-30 15:38] LABS: ADD UMIC YES; UR ASCORBIC ACID NEGATIVE (NEGATIVE); UR BACTERIA FEW /HPF (NONE SEEN); UR BILIRUBIN (Dip) NEGATIVE (NEGATIVE); UR BLOOD (Dip) 1+ mg/dL (NEGATIVE); UR CLARITY CLEAR (CLEAR); UR COLOR YELLOW (YELLOW); UR GLUCOSE (Dip) NEGATIVE (NEGATIVE); UR KETONES (Dip) NEGATIVE (NEGATIVE); UR LEUKOCYTE ESTERASE (Dip) 1+ Leu/ul (NEGATIVE); UR NITRITE (Dip) NEGATIVE (NEGATIVE); UR RBC 2 /HPF (0-5); UR SQUAMOUS EPITHELIAL CELL FEW /HPF (FEW); UR TOTAL PROTEIN (Dip) NEGATIVE (NEGATIVE); UR UROBILINOGEN (Dip) NEGATIVE (NEGATIVE)
[2017-01-30 16:10] LABS: ALANINE AMINOTRANSFERASE 35 IU/L (13-69); ALBUMIN 2.8 g/dl (3.3-4.9); ALBUMIN/GLOBULIN RATIO 0.96; ALKALINE PHOSPHATASE 175 IU/L (42-121); ANION GAP 12 (8-16); ASPARTATE AMINO TRANSFERASE 21 IU/L (15-46); BILIRUBIN,INDIRECT 0.1 mg/dl (0-1.1); BILIRUBIN,TOTAL 0.1 mg/dl (0.2-1.3); BLOOD UREA NITROGEN 11 mg/dl (7-20); CALCIUM 9.6 mg/dl (8.4-10.2); CARBON DIOXIDE 21 mmol/L (21-31); CHLORIDE 106 mmol/L (97-110); CREATININE 0.46 mg/dl (0.44-1.00); GLUCOSE 112 mg/dl (70-220); POTASSIUM 3.9 mmol/L (3.5-5.1); SODIUM 135 mmol/L (135-144); TOTAL PROTEIN 5.7 g/dl (6.1-8.1)
[2017-01-30] MEDS ORDERED: BUTORPHANOL 2 MG INJ ONE (17:53)
[2017-01-30] MEDS: LABETALOL 200 MG TAB PO PRN (18:04)
--- NOTE | 2017-01-30 18:20 | HP ---
Date/Time of Note Date/Time of Note DATE: 01/30/17 TIME: 18:08 OB - History Hx of Present Free Text/Dictation This is a 41 years old female 4 para 3 with 3 vaginal deliveries Patient had care at my office since 8 weeks of her She developed gestational diabetes A1, diet controlled. She was also diagnosed with multiple fibroids. She had NST BPP SINCE 32 WEEKS OF She has seen Dr. Trino Tobin today at 38 weeks and 2 days and she diagnosed her with severe preeclampsia. She was admitted for induction of labor and for treatment of preeclampsia. Chief Complaint: She has no headaches dizziness or epigastric pain. Last Menstrual Period: Jan 30, 2017 Estimated Due Date: Feb 08, 2017 : 4 Para: 3 Care: Good Care Ultrasounds: Normal mid trimester US Obstetrical Complications: Gestational Diabetes, Pre-eclampsia Medical Complications: None Past Family/Social History * Past Medical, Surgical, Family and Obstetric Histories reviewed from chart. Blood Type: A+ Rubella: immune RPR/VDRL: Negative GBS Status: Negative HBsAG: Negative OB Admission Exam Vital Signs Vital Signs Vital Signs Date Time Temp Pulse Resp B/P Pulse Ox O2 Delivery O2 Flow Rate FiO2 01/30/17 14:54 98.2 65 20 153/93 Room Air Physical Exam HEENT: WNL Heart: Rhythm Normal Lungs: Clear, Equal Abdomen: WNL Extremities: Normal Reflexes: Normal Cervical Dilatation: None Effacement: 0% Station: [place] Membranes: Intact Accelerations: Accelerations Present Varibility: Moderate Contractions on Admission: None Last 72 hourBlood Glucose Bedside Glucose - 72 Hours Test 01/30/17 15:59 Bedside Glucose 104mg/dL (70-220) Last 72 hours Lab Results CBC & BMP 01/30/17 11:47 01/30/17 15:05 Liver Function Test 01/30/17 15:05 Alanine Aminotransferase (ALT/SGPT) 35 Albumin 2.8 L Alkaline Phosphatase 175 H Aspartate Amino Transf (AST/SGOT) 21 Direct Bilirubin 0.00 Total Protein 5.7 L OB Assessment/Plan Reason for admission: induction of labor Induction Method: per Misoprostol Protocol MENDY NASSAR MD Jan 30, 2017 18:18
[2017-01-30] MEDS ORDERED: FENTAnyl 2MCG/ML-ROPIV 0.2% 100 ML ONE (18:35)
[2017-01-30] MEDS ORDERED: FENTAnyl 2MCG/ML-ROPIV 0.2% 100 ML BAG EPI SCH (19:00)
[2017-01-30] MEDS ORDERED: NALOXONE (0.4 MG/ML) INJ IV PRN (19:00)
[2017-01-30] MEDS: DEXTROSE 5%-LR 1,000 ML IV SCH ×2 (19:59→20:29)
[2017-01-30] MEDS: ONDANSETRON 4 MG INJ IV PRN (20:52)
[2017-01-30] MEDS ORDERED: LIDOCAINE 1% (MPF) 30 ML INJ INJ PRN (23:30)
[2017-01-30] MEDS ORDERED: CARBOPROST 250 MCG INJ IM PRN (23:30)
[2017-01-30] MEDS ORDERED: IBUPROFEN 600 MG TAB PO PRN (23:30)
[2017-01-30] MEDS ORDERED: OXYTOCIN 30 UNITS/LR 500 ML IV PRN (23:30)
[2017-01-30] MEDS ORDERED: OXYCODONE/ACETAMINOPHEN (5/325) TAB PO PRN (23:30)
[2017-01-30] MEDS ORDERED: MISOPROSTOL 200 MCG TAB PR PRN (23:30)
[2017-01-30] MEDS ORDERED: OXYTOCIN 30 UNITS/LR 500 ML IV SCH ×2 (23:30)
[2017-01-30] MEDS ORDERED: METHYLERGONOVINE 0.2 MG INJ IM PRN (23:30)
[2017-01-31] VITALS (16 sets, daily range): BP systolic 97–136; BP diastolic 56–88; PULSE 75–103; RESP 16–21
[2017-01-31] MEDS: OXYTOCIN 30 UNITS/LR 500 ML IV SCH ×2 (00:07→05:24)
[2017-01-31] MEDS ORDERED: MAGNESIUM SULFATE 20 GM/500 ML 500 ML IV SCH (00:22)
[2017-01-31] MEDS ORDERED: DIPHENHYDRAMINE 25 MG CAP PO PRN (00:30)
[2017-01-31] MEDS ORDERED: DIBUCAINE 1% 30 GM OINT PR PRN (00:30)
[2017-01-31] MEDS ORDERED: OXYTOCIN 30 UNITS/LR 500 ML IV PRN (00:30)
[2017-01-31] MEDS ORDERED: METHYLERGONOVINE 0.2 MG INJ IM PRN (00:30)
[2017-01-31] MEDS ORDERED: ACETAMINOPHEN 325 MG TAB PO PRN ×2 (00:30)
[2017-01-31] MEDS ORDERED: CARBOPROST 250 MCG INJ IM PRN (00:30)
[2017-01-31] MEDS ORDERED: LANOLIN 7 GM TUBE TOP PRN (00:30)
[2017-01-31] MEDS ORDERED: ONDANSETRON 4 MG INJ IV PRN (00:30)
[2017-01-31] MEDS ORDERED: MISOPROSTOL 200 MCG TAB PR PRN (00:30)
--- NOTE | 2017-01-31 00:44 | LDN ---
Date/Time of Note Date/Time of Note DATE: 01/31/17 TIME: 00:39 Delivery Summary ADMITTED FOR INDUCTION OF LABOR AT 38.5 WEEKS OF DUE TO SEVERE PIH AND GDM A1 SPONTANEOUS VAGINAL DELIVERY BABY GIRL 9 SECOND DEGREE PERINEAL LACERATION REPAIRED UNDER EPIDURAL ANESTHESIA. PATIENT TOLERATED THE PROCEDURE WELL. Weeks of Gestation 38.5 Placenta Delivered: Spontaneously Meconium: none Episiotomy: No Perineal laceration: 2 Laceration repair: YES Anesthesia type: Epidural Sponge & Needle done & correct: Yes All needle counts correct: Yes Any foreign bodies felt in the: No Problems: Infant Delivery Information Sex Infant Sex: female Apgars 1 Minute: 9 5 Minute: 9 Suctioning Nose & mouth suctioned at rylie: Yes Umbilical Cord Umbilical cord with: 3 Vessels Cord presentations: no nuchal cord Cord Blood was obtained: Yes Mother & Baby Disposition Disposition Mom & Baby to Maternity; Good: Yes MENDY NASSAR MD Jan 31, 2017 00:44
[2017-01-31] MEDS: LACTATED RINGER'S 1,000 ML IV SCH ×2 (03:59→10:55)
[2017-01-31] MEDS: DEXTROSE 5%-LR 1,000 ML IV SCH ×2 (03:59→11:59)
[2017-01-31] MEDS: IBUPROFEN 800 MG TAB PO SCH ×4 (05:31→23:39)
[2017-01-31] MEDS: BENZOCAINE 20% 56 ML SPRAY TOP PRN (07:14)
[2017-01-31] MEDS: SENNA/DOCUSATE NA (8.6MG/50MG) TAB PO SCH ×2 (08:54→20:19)
[2017-01-31] MEDS: LABETALOL 100 MG TAB PO SCH ×2 (09:00→21:00)
[2017-01-31 10:30] LABS: BASOPHILS % 0.3 % (0.0-2.0); EOSINOPHILS % 0.4 % (0.0-7.0); HEMATOCRIT 37.3 % (37.0-47.0); HEMOGLOBIN 12.9 g/dl (12.0-16.0); LYMPHOCYTES # 1.1 10^3/ul (0.8-2.9); LYMPHOCYTES % 10.3 % (15.0-51.0); MEAN CORPUSCULAR HEMOGLOBIN 30.5 pg (29.0-33.0); MEAN CORPUSCULAR HGB CONC 34.6 g/dl (32.0-37.0); MEAN CORPUSCULAR VOLUME 88.2 fl (82.0-101.0); MONOCYTE # 0.6 10^3/ul (0.3-0.9); MONOCYTES % 6.1 % (0.0-11.0); NEUTROPHIL # 8.6 10^3/ul (1.6-7.5); NEUTROPHILS % 82.6 % (39.0-77.0); PLATELET COUNT 137 10^3/UL (140-415); RED BLOOD COUNT 4.23 10^6/ul (4.20-5.40); WHITE BLOOD COUNT 10.4 10^3/ul (4.8-10.8)
[2017-01-31 10:52] LABS: INR 0.94; PARTIAL THROMBOPLASTIN TIME 26.7 Sec (25.0-35.0); PROTIME 12.7 Sec (11.9-14.9)
[2017-01-31 10:53] LABS: ALBUMIN 2.5 g/dl (3.3-4.9); ALBUMIN/GLOBULIN RATIO 0.83; BILIRUBIN,INDIRECT 0.3 mg/dl (0-1.1); BILIRUBIN,TOTAL 0.3 mg/dl (0.2-1.3); CALCIUM 7.9 mg/dl (8.4-10.2); CREATININE 0.52 mg/dl (0.44-1.00); POTASSIUM 3.9 mmol/L (3.5-5.1); TOTAL PROTEIN 5.5 g/dl (6.1-8.1); URIC ACID 4.8 mg/dl (3.1-7.9)
[2017-01-31] MEDS ORDERED: INFLUENZA VIRUS VACCINE 0.5 ML (DISPENSING) IM* ONE (19:00)
[2017-01-31] MEDS: HYDROCODONE/APAP (5/325) TAB PO PRN (20:19)
[2017-02-01] VITALS (8 sets, daily range): BP systolic 126–166; BP diastolic 75–91; PULSE 63–77; RESP 18–21
[2017-02-01] MEDS: LABETALOL 100 MG TAB PO PRN ×2 (03:21→16:43)
[2017-02-01] MEDS: IBUPROFEN 800 MG TAB PO SCH ×3 (05:30→17:42)
--- NOTE | 2017-02-01 08:18 | PD.PPDC ---
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
--- NOTE | 2017-02-01 08:21 | DS ---
Date/Time of Note Date/Time of Note DATE: 02/01/17 TIME: 08:20 Obstetrical Discharge Record Final Diagnosis Final Diagnosis: Term delivered Vaginal Delivery Obstetrical Delivery: Spontaneous Complications Preg induced Hypertension Induction: Yes Condition on Discharge Physical Assessment Voiding: Yes Bowel Movement: Yes Breast: Soft, non-tender, Filling Fundus: Firm Calf Tenderness: No Patient Condition: Good MENDY NASSAR MD Feb 01, 2017 08:21
--- NOTE | 2017-02-01 08:25 | PN ---
Date/Time of Note Date/Time of Note DATE: 01/31/17 TIME: 08:21 OB Subjective Subjective Subjective day 1 afebrile feels good no headaches dizziness double vision or epigastric pain. reflexes are normal. no leg edema. BP stable LOW PLATELETS BUT NO ACTIVE BLEEDING uterus contracted, lochia normal OB Objective HEENT: WNL Heart: Rhythm Normal Lungs: Clear, Equal Abdomen: WNL Extremities: Normal Reflexes: Normal MENDY NASSAR MD Feb 01, 2017 08:25
[2017-02-01] MEDS ORDERED: INFLUENZA VIRUS VACCINE 0.5 ML (DISPENSING) IM* ONE (09:00)
[2017-02-01] MEDS: LABETALOL 100 MG TAB PO SCH ×3 (09:38→20:34)
[2017-02-01] MEDS: SENNA/DOCUSATE NA (8.6MG/50MG) TAB PO SCH ×2 (09:38→20:34)
[2017-02-01] MEDS: LACTATED RINGER'S 1,000 ML IV SCH ×3 (11:24→11:26)
[2017-02-01] MEDS: DEXTROSE 5%-LR 1,000 ML IV SCH ×2 (11:24→11:25)
[2017-02-01] MEDS ORDERED: AL HYDROX/MG HYDROX/SIMETH 30 ML CUP PO PRN (14:00)
[2017-02-01 14:20] LABS: BASOPHILS % 0.4 % (0.0-2.0); EOSINOPHILS # 0.2 10^3/ul (0.0-0.5); EOSINOPHILS % 1.7 % (0.0-7.0); HEMATOCRIT 35.5 % (37.0-47.0); HEMOGLOBIN 12.4 g/dl (12.0-16.0); LYMPHOCYTES # 1.2 10^3/ul (0.8-2.9); LYMPHOCYTES % 13.2 % (15.0-51.0); MEAN CORPUSCULAR HEMOGLOBIN 31.2 pg (29.0-33.0); MEAN CORPUSCULAR HGB CONC 34.9 g/dl (32.0-37.0); MEAN CORPUSCULAR VOLUME 89.4 fl (82.0-101.0); MEAN PLATELET VOLUME 11.5 fl (7.4-10.4); MONOCYTE # 0.5 10^3/ul (0.3-0.9); MONOCYTES % 5.8 % (0.0-11.0); NEUTROPHIL # 7.1 10^3/ul (1.6-7.5); NEUTROPHILS % 78.3 % (39.0-77.0); PLATELET COUNT 166 10^3/UL (140-415); RED BLOOD COUNT 3.97 10^6/ul (4.20-5.40); RED CELL DISTRIBUTION WIDTH 13.7 % (11.5-14.5); WHITE BLOOD COUNT 9.1 10^3/ul (4.8-10.8)
[2017-02-01 14:38] LABS: ALBUMIN 2.8 g/dl (3.3-4.9); ALBUMIN/GLOBULIN RATIO 0.93; BILIRUBIN,INDIRECT 0.2 mg/dl (0-1.1); BILIRUBIN,TOTAL 0.2 mg/dl (0.2-1.3); CALCIUM 9.2 mg/dl (8.4-10.2); CREATININE 0.61 mg/dl (0.44-1.00); POTASSIUM 3.9 mmol/L (3.5-5.1); TOTAL PROTEIN 5.8 g/dl (6.1-8.1)
[2017-02-01 20:45] LABS: ADD UMIC YES; UR ASCORBIC ACID 20 mg/dL (NEGATIVE); UR BILIRUBIN (Dip) NEGATIVE (NEGATIVE); UR BLOOD (Dip) 1+ mg/dL (NEGATIVE); UR CLARITY CLEAR (CLEAR); UR COLOR YELLOW (YELLOW); UR GLUCOSE (Dip) NEGATIVE (NEGATIVE); UR KETONES (Dip) NEGATIVE (NEGATIVE); UR LEUKOCYTE ESTERASE (Dip) NEGATIVE Leu/ul (NEGATIVE); UR MUCUS FEW /HPF (NONE SEEN); UR NITRITE (Dip) NEGATIVE (NEGATIVE); UR RBC 9 /HPF (0-5); UR SPECIFIC GRAVITY (Dip) 1.021 (1.003-1.030); UR TOTAL PROTEIN (Dip) 2+ mg/dl (NEGATIVE); UR UROBILINOGEN (Dip) NEGATIVE (NEGATIVE)
[2017-02-02] VITALS (29 sets, daily range): BP systolic 111–220; BP diastolic 73–126; PULSE 55–82; RESP 18–19
[2017-02-02] MEDS: IBUPROFEN 800 MG TAB PO SCH ×4 (00:09→17:56)
[2017-02-02] MEDS: LABETALOL 200 MG TAB PO PRN (00:14)
[2017-02-02] MEDS ORDERED: hydrALAzine 20 MG INJ IM ONE (02:00)
[2017-02-02] MEDS: PHENYTOIN 100 MG CAP PO SCH ×3 (02:08→13:20)
[2017-02-02] MEDS ORDERED: hydrALAzine 20 MG INJ IM PRN (05:00)
[2017-02-02] MEDS: LABETALOL 100 MG TAB PO SCH (08:14)
[2017-02-02] MEDS: SENNA/DOCUSATE NA (8.6MG/50MG) TAB PO SCH ×2 (08:20→20:57)
[2017-02-02] MEDS: HYDROCODONE/APAP (5/325) TAB PO PRN ×2 (08:21→20:20)
[2017-02-02] MEDS ORDERED: MEASLES,MUMPS,RUBELLA VACCINE INJ SC* ONE (09:00)
[2017-02-02] MEDS ORDERED: DIPHTH/TET/ACEL PERTUSS (ADULT) 0.5 ML VIAL IM* ONE (09:00)
[2017-02-02] MEDS ORDERED: VARICELLA VACCINE LIVE/PF 1,350 UNIT/0.5 ML ML SC* ONE (09:00)
--- NOTE | 2017-02-02 10:15 | PN ---
Date/Time of Note Date/Time of Note DATE: 02/02/17 TIME: 10:11 OB Subjective Subjective Subjective Patient discharged was canceled due to high blood pressure yesterday. Last night she started having high blood pressure again and hydralazine was added to her labetalol for control. And also Dilantin 100 mg 3 times daily. Was added. She has headaches sometimes relieved with [place] also very seldom she has epigastric discomfort. Not having discomfort in the epigastrium at this time and her reflexes are normal to decreased due to the Dilantin. Edema is resolving, improving. No visual disturbances. We will keep her today in observation for her blood pressure control while on hydralazine Dilantin and labetalol. Bedrest reinforced Warning signs were explained to patient and shira to call the nurse. OB Objective HEENT: WNL Heart: Rhythm Normal Lungs: Clear, Equal Abdomen: WNL Extremities: Normal Reflexes: Normal MENDY NASSAR MD Feb 02, 2017 10:15
[2017-02-02] MEDS ORDERED: LABETALOL 100 MG TAB PO STA (10:23)
[2017-02-02] MEDS: BENZOCAINE 20% 56 ML SPRAY TOP PRN (12:05)
[2017-02-02] MEDS: LABETALOL 200 MG TAB PO SCH (20:57)
[2017-02-02] MEDS ORDERED: hydrALAzine 20 MG INJ IV ONE (21:43)
[2017-02-02] MEDS ORDERED: MAGNESIUM SULFATE 20 GM/500 ML 500 ML IV ONE (21:45)
[2017-02-02] MEDS ORDERED: LABETALOL HCL 20MG INJ ONE (21:53)
[2017-02-02] MEDS ORDERED: LABETALOL HCL 20MG INJ IV ONE (21:53)
[2017-02-02 22:35] LABS: BASOPHILS % 0.4 % (0.0-2.0); EOSINOPHILS # 0.3 10^3/ul (0.0-0.5); EOSINOPHILS % 3.8 % (0.0-7.0); HEMATOCRIT 37.7 % (37.0-47.0); HEMOGLOBIN 13.3 g/dl (12.0-16.0); LYMPHOCYTES # 1.4 10^3/ul (0.8-2.9); LYMPHOCYTES % 17.1 % (15.0-51.0); MEAN CORPUSCULAR HGB CONC 35.3 g/dl (32.0-37.0); MEAN CORPUSCULAR VOLUME 87.9 fl (82.0-101.0); MONOCYTE # 0.7 10^3/ul (0.3-0.9); MONOCYTES % 8.2 % (0.0-11.0); NEUTROPHIL # 5.5 10^3/ul (1.6-7.5); NEUTROPHILS % 69.9 % (39.0-77.0); PLATELET COUNT 196 10^3/UL (140-415); RED BLOOD COUNT 4.29 10^6/ul (4.20-5.40); RED CELL DISTRIBUTION WIDTH 13.6 % (11.5-14.5); WHITE BLOOD COUNT 7.9 10^3/ul (4.8-10.8)
--- NOTE | 2017-02-02 22:49 | RADRPT ---
PROCEDURE: CT Brain without contrast. CLINICAL INDICATION: Seizures. Hypertension. TECHNIQUE: A CT of the brain was performed on a multidetector CT scanner utilizing axial imaging f rom the skull base through the vertex without IV contrast. Multiplanar reformatted images were made . Images were reviewed on a PACS workstation. The CTDIvol is 45 mGy and the DLP is 720 mGycm. DICOM images are available. One or more of the following dose reduction techniques were utilized: 1.) Automated exposure control 2.) Adjustment of the mA +/- kV according to patient's size 3.) Use of iterative reconstruction technique. COMPARISON: None FINDINGS: There is no intracranial hemorrhage, mass effect, or midline shift. No extra-axial fluid collection is seen. The ventricles and sulci are normal in size and configuration. The density of the brain is normal, and the ribera white matter differentiation appears well-preserved. The visualized osseous s tructures are grossly unremarkable. Polyp or mucous retention cyst is present in the left maxillary sinus. IMPRESSION: 1. No evidence of acute intracranial pathology. 2. The brain is normal in appearance. .Herrera Garnica MD MD Date Time Electronically viewed and signed by .Herrera Garnica MD, MD on 02/02/2017 22:48 .A/
[2017-02-02 22:53] LABS: ALBUMIN 3.1 g/dl (3.3-4.9); BILIRUBIN,INDIRECT 0.5 mg/dl (0-1.1); BILIRUBIN,TOTAL 0.5 mg/dl (0.2-1.3); CALCIUM 8.8 mg/dl (8.4-10.2); CREATININE 0.53 mg/dl (0.44-1.00); TOTAL PROTEIN 6.2 g/dl (6.1-8.1)
[2017-02-02 22:55] LABS: POTASSIUM 2.8 mmol/L (3.5-5.1)
[2017-02-02] MEDS: ONDANSETRON 4 MG INJ IV PRN (23:17)
[2017-02-02] MEDS: hydrALAzine 20 MG INJ IV SCH (23:35)
[2017-02-03] VITALS (11 sets, daily range): BP systolic 122–140; BP diastolic 69–79; PULSE 70–89; RESP 16–20
[2017-02-03] MEDS: HYDROCODONE/APAP (5/325) TAB PO PRN ×4 (00:49→18:18)
[2017-02-03] MEDS: IBUPROFEN 800 MG TAB PO SCH ×3 (00:49→22:17)
--- NOTE | 2017-02-03 01:53 | QN ---
Documentation Comment called for severe headahe on s/p #3day BP 222/110 hydralazine 20mg iv given per her OB 2144 headahe excruciating but welloriented no seizure activities seen knowing hx of PIH mgso4 started 4gm/2gmc rapid response team was called but hspitalist not shown up (dr becker) but able to talk to him labetalol 20mg IV given 15min after hydralazine bring down bp to 136/86 vomit x2 priot to bp controlled proper response to questions and headache was much alleviated motor function intact DTR +++ A hypertensive crisis p CT scan of brain CBC CMP spoke to her OB who also order liver scan transferred to tele AJAY DURBIN MD Feb 03, 2017 01:51
[2017-02-03] MEDS: hydrALAzine 20 MG INJ IV SCH ×12 (02:00→22:00)
[2017-02-03] MEDS ORDERED: POTASSIUM CHLORIDE 250 ML IVPB ONE (04:00)
[2017-02-03] MEDS ORDERED: hydrALAzine 20 MG INJ ONE (07:00)
--- NOTE | 2017-02-03 07:48 | RADRPT ---
PROCEDURE: US Abdomen (right upper quadrant). CLINICAL INDICATION: Elevated liver function tests, hypertension, and seizures. TECHNIQUE: Multiple real-time longitudinal and transverse images of the right upper quadrant of th e abdomen were acquired utilizing a curved array transducer. Images were reviewed on a high-resoluti on PACS workstation. COMPARISON: None FINDINGS: The liver is enlarged and normal in echogenicity. There is no focal hepatic lesion. Color Doppler and pulsed Doppler sonography demonstrate normal a ntegrade flow in the portal vein. There may be sludge in the gallbladder. The gallbladder is otherwise normal with no stones or wall t hickening. There is no pericholecystic fluid collection. The bile ducts are normal with the common bile duct measuring 5.8 mm in diameter. The visualized portions of the pancreas are unremarkable with obscuration of the tail of the pancrea s. No free fluid is present. The right kidney measures 10.6 cm. There is normal echogenicity of the right kidney. There is no perinephric fluid collection. No hydronephrosis, mass, or calculus is seen. IMPRESSION: 1. Hepatomegaly. 2. Possible sludge in the gallbladder. 3. Otherwise unremarkable right upper quadrant abdomen ultrasound. RPTAT: QQ .Rogerio Quiros MD, MD Date Time Electronically viewed and signed by .Rogerio Quiros MD, on 02/03/2017 07:48 .R/
[2017-02-03] MEDS: LABETALOL 200 MG TAB PO SCH ×3 (08:53→22:19)
[2017-02-03] MEDS: SENNA/DOCUSATE NA (8.6MG/50MG) TAB PO SCH ×2 (08:53→22:19)
[2017-02-03] MEDS ORDERED: DIPHTH/TET/ACEL PERTUSS (ADULT) 0.5 ML VIAL IM* ONE (11:00)
--- NOTE | 2017-02-03 11:35 | NSTRPT ---
NST Information Datetime Report Generated by CPN: 02/03/2017 11:35 Datetime: 01/30/2017 09:03 NST Information EGA: 38.5 Test Number: 1 Time on Monitor: 01/30/2017 09:25 Time off Monitor: 01/30/2017 10:03 NST Duration (Min): 38 Reason for NST: Diabetes Mellitus; Other Reason for NST Other: A1DM Test and Monitor Explained: Monitor Explained; Test Explained; Verbalized Understanding Pulse: 60 Resp: 17 SBP: 150 DBP: 86 Test Evaluation NST Interventions: PO Hydration; Food Given; Reposition Patient Patient States Movement: Present Contraction Frequency: occasional, mild FHR Baseline : 135 Variability: Moderate 6-25bpm Accelerations: 15X15 Decelerations: None FHR Category: Category I NST Results: Reactive Comments: To u/s, CURTIS 14.2cm, cephalic FBS 90 1014-Dr Webb paged [phone]-Dr Rodriguez spoke with Dr Webb, recommends delivery and Magnesium Sulfate [phone]-Dr Webb paged Electronically Signed By E-Signature: with User ID: [id number], Addendum/Amendment: Signed for Dr. Rodriguez
--- NOTE | 2017-02-03 11:42 | CONS ---
Date/Time of Note Date/Time of Note DATE: 02/03/17 TIME: 11:42 Assessment/Plan Assessment/Plan Chief Complaint/Hosp Course 1. Severe Preeclampsia s/p delivery 2. 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 Hence I will be starting her right now on nifedipine XL 30 twice daily titrated up to 90 twice daily for improved blood pressure control. I will also increase her labetalol to 200 mg times a day and we can always increase that to 300 times a day if neccesary. We will continue to use as needed blood pressure medications for systolic blood pressure greater than 160. Further interventions will depend on her clinical course. I will also change her diet to carb controlled and the sliding scale insulin. Thank you for this consult will continue to follow with you. Problems: Consultation Date/Type/Reason Admit Date/Time Jan 30, 2017 at 11:24 Date of Consultation: Feb 03, 2017 Type of Consultation: medicine Reason for Consultation Hypertension Referring Provider: MENDY NASSAR MD Hx of Present Illness [age]-year-old female who was admitted we did additional diagnosis, multiple fibroids, and preeclampsia. She is induction of labor 4 days ago and ended up having a spontaneous vaginal delivery 3 days ago. However have postdelivery course has been complicated by severely elevated blood pressures. Overnight the rapid response was called on her because of headaches as well as excessively high pressures and elevated liver enzymes and as such a diagnosis of preeclampsia is being made and patient is being managed now on magnesium therapy. Was consulted for blood pressure management. Constitutional: No febrile, No poor po Gastrointestinal: no complaints Genitourinary: no complaints Neurologic: No focal-weakness, No seizure Past Medical History * gestational DM * Preeclampsia Social History Alcohol Use: none Smoking Status: Never smoker Drug Use: none Exam/Review of Systems Vital Signs Vitals VS - Last 72 Hours, by Label Date Time Temp Pulse Resp B/P Pulse Ox O2 Delivery O2 Flow Rate FiO2 02/03/17 12:40 89 02/03/17 12:23 98.0 82 18 122/71 98 02/03/17 08:44 2.0 02/03/17 08:18 98.0 70 18 135/79 98 02/03/17 08:10 Nasal Cannula 2.0 02/03/17 08:06 71 02/03/17 06:20 98 2.0 02/03/17 05:15 99.0 74 20 128/69 98 02/03/17 04:00 70 02/03/17 03:21 Nasal Cannula 2.0 02/03/17 00:00 75 02/03/17 00:00 Nasal Cannula 2.0 02/02/17 23:14 74 02/02/17 22:25 74 137/88 02/02/17 22:10 82 136/86 02/02/17 22:05 74 135/91 02/02/17 21:58 100 10.0 02/02/17 21:58 177/110 02/02/17 21:55 199/117 02/02/17 21:40 220/126 02/02/17 21:40 67 02/02/17 21:35 62 218/116 Room Air 02/02/17 20:11 98.4 70 18 159/91 Room Air 02/02/17 18:35 67 19 164/94 Room Air 02/02/17 18:01 67 18 186/106 Room Air 02/02/17 16:10 98.0 66 19 157/92 Room Air 02/02/17 15:45 02/02/17 15:30 02/02/17 13:56 68 18 159/99 Room Air 02/02/17 12:02 98.0 66 19 151/90 Room Air 02/02/17 10:45 68 19 154/92 Room Air 02/02/17 10:00 71 18 154/99 Room Air 02/02/17 08:15 60 19 136/95 Room Air 02/02/17 08:00 98.5 67 19 170/98 Room Air 02/02/17 06:38 64 18 151/89 Room Air 02/02/17 05:45 18 167/101 Room Air 02/02/17 05:00 55 18 139/88 Room Air 02/02/17 04:30 98.7 66 18 169/91 Room Air 02/02/17 03:32 69 18 155/97 Room Air 02/02/17 01:40 61 195/111 02/02/17 00:00 97.6 61 18 169/104 Room Air 02/01/17 20:15 98.9 68 18 147/79 Room Air 02/01/17 16:43 98.7 63 18 155/88 Room Air 02/01/17 13:00 98.6 64 21 160/75 Room Air 02/01/17 09:38 75 19 140/79 Room Air 02/01/17 08:35 98.6 73 20 166/91 Room Air 02/01/17 04:00 98.1 73 18 128/76 Room Air 02/01/17 03:18 70 18 136/75 Room Air 02/01/17 00:00 98.6 77 18 126/76 Room Air 01/31/17 20:00 97.9 80 18 124/88 Room Air 01/31/17 17:15 86 16 116/72 01/31/17 16:15 98.4 88 16 125/72 Room Air 01/31/17 15:15 91 18 136/75 Vital Signs Date Time Temp Pulse Resp B/P Pulse Ox O2 Delivery O2 Flow Rate FiO2 02/03/17 08:44 2.0 02/03/17 08:18 98.0 70 18 135/79 98 02/03/17 03:21 Nasal Cannula Exam Constitutional: alert, oriented Psych: nl mood/affect Head: normocephalic Eyes: PERRL Neck: supple Respiratory: clear to auscultation, diminished breath sounds Cardiovascular: regular rate and rhythm, No murmurs/extra sounds Gastrointestinal: bowel sounds, soft Extremities: No edema Results Result Diagram: 02/02/17222602/02/172226 Results 24 hrs Laboratory Tests Test 02/02/17 22:27 02/03/17 07:39 White Blood Count 7.9 Red Blood Count 4.29 Hemoglobin 13.3 Hematocrit 37.7 Mean Corpuscular Volume 87.9 Mean Corpuscular Hemoglobin 31.0 Mean Corpuscular Hemoglobin Concent 35.3 Red Cell Distribution Width 13.6 Platelet Count 196 Mean Platelet Volume 11.0 H Neutrophils % 69.9 Lymphocytes % 17.1 Monocytes % 8.2 Eosinophils % 3.8 Basophils % 0.4 Nucleated Red Blood Cells % 0.0 Neutrophils # 5.5 Lymphocytes # 1.4 Monocytes # 0.7 Eosinophils # 0.3 Basophils # 0.0 Nucleated Red Blood Cells # 0.0 Sodium Level 133 L Potassium Level 2.8 *L Chloride Level 100 Carbon Dioxide Level 26 Anion Gap 10 Blood Urea Nitrogen 7 Creatinine 0.53 Glucose Level 110 Calcium Level 8.8 Total Bilirubin 0.5 Direct Bilirubin 0.00 Indirect Bilirubin 0.5 Aspartate Amino Transf (AST/SGOT) 62 H Alanine Aminotransferase (ALT/SGPT) 70 H Alkaline Phosphatase 157 H Total Protein 6.2 Albumin 3.1 L Globulin 3.10 Albumin/Globulin Ratio 1.00 Lab Scanned Report REFERENCE LAB Medications Medications Current Medications Naloxone HCl (Narcan) 0.2 mg Q2M PRN IV FOR RESP RATE 8 OR LESS; Start at 19:00 Ondansetron HCl (Zofran Inj) 4 mg Q4H PRN IV NAUSEA AND/OR VOMITING Last administered on 02/02/17 23:17; Admin Dose 4 MG; Start 01/30/17 at 21:00 Lidocaine 30 ml 30 ml ONCE PRN INJ EPISIOTOMY/TEARING; Start 01/30/17 at 23:30 Oxytocin/Lactated Ringer's 500 ml @ 125 mls/hr ONCE IV Last administered on 00:15; Admin Dose 125 MLS/HR; Start 01/30/17 at 23:30 Oxytocin/Lactated Ringer's 500 ml @ 0 mls/hr ONCE PRN IV For Hemorrhage Management; Start 01/30/17 at 23:30 Methylergonovine Maleate (Methergine) 0.2 mg ONCE PRN IM VAGINAL BLEEDING; Start 01/30/17 at 23:30 Carboprost Tromethamine (Hemabate) 250 mcg ONCE PRN IM VAGINAL BLEEDING; Start 01/30/17 at 23:30 Misoprostol (Cytotec) 1,000 mcg ONCE PRN [place] VAGINAL BLEEDING; Start 01/30/17 at 23:30 Ibuprofen (Motrin) 600 mg ONCE PRN PO Mild Pain (Pain Score 1-3); Start at 23:30 Oxycodone/ Acetaminophen (Percocet (5/ 325)) 2 tab ONCE PRN PO Moderate to Severe Pain (4-10) Last administered on 02/02/17 01:56; Admin Dose 2 TAB; Start 01/30/17 at 23:30 Ibuprofen (Motrin) 800 mg Q6 PO Last administered on 02/03/17 06:11; Admin Dose 800 MG; Start 01/31/17 at 06:00 Acetaminophen (Tylenol Tab) 650 mg Q4H PRN PO PAIN LEVEL 1-5; Start 01/31/17 at 00:30 Acetaminophen/ Hydrocodone Bitart ([place] (5/325)) 1 tab Q4H PRN PO PAIN LEVEL 1 -5 Last administered on 02/02/17 20:20; Admin Dose 1 TAB; Start 01/31/17 at 00: 30 Acetaminophen/ Hydrocodone Bitart ([place] (5/325)) 2 tab Q4H PRN PO PAIN LEVEL 6 -10 Last administered on 02/03/17 06:10; Admin Dose 2 TAB; Start 01/31/17 at 00 :30 Ondansetron HCl (Zofran Inj) 4 mg Q6H PRN IV NAUSEA AND/OR VOMITING Last administered on 02/02/17 22:00; Admin Dose 4 MG; Start 01/31/17 at 00:30 Diphenhydramine HCl (Benadryl) 25 mg Q6H PRN PO PRURITUS; Start 01/31/17 at 00: 30 Senna/Docusate Sodium (Senokot-S) 1 tab BID PO Last administered on 02/03/17 08:53; Admin Dose 1 TAB; Start 01/31/17 at 09:00 Acetaminophen 650 mg 650 mg Q4H PRN PO ELEVATED TEMPERATURE; Start 01/31/17 at 00:30 Oxytocin/Lactated Ringer's 500 ml @ 0 mls/hr ONCE PRN IV For Hemorrhage Management; Start 01/31/17 at 00:30 Methylergonovine Maleate (Methergine) 0.2 mg ONCE PRN IM VAGINAL BLEEDING; Start 01/31/17 at 00:30 Carboprost Tromethamine (Hemabate) 250 mcg ONCE PRN IM VAGINAL BLEEDING; Start 01/31/17 at 00:30 Misoprostol (Cytotec) 1,000 mcg ONCE PRN [place] VAGINAL BLEEDING; Start 01/31/17 at 00:30 Al Hydrox/Mg Hydrox/Simethicone (Mag-Al Plus) 30 ml Q6H PRN PO GASTROINTESTINAL UPSET Last administered on 02/01/17 13:56; Admin Dose 30 ML; Start 02/01/17 at 14:00 Hydralazine HCl (Apresoline) 10 mg Q6 PO Last administered on 02/03/17 06:10; Admin Dose 10 MG; Start 02/02/17 at 06:00 Labetalol HCl (Normodyne) 200 mg BID PO Last administered on 02/03/17 08:53; Admin Dose 200 MG; Start 02/02/17 at 21:00; Stop 02/04/17 at 20:59 Hydralazine HCl (Apresoline) 20 mg Q2H IV Last administered on 02/03/17 10:52 ; Admin Dose 20 MG; Start 02/02/17 at 22:00 Procedures Procedures PROCEDURE: US Abdomen (right upper quadrant). CLINICAL INDICATION: Elevated liver function tests, hypertension, and seizures. TECHNIQUE: Multiple real-time longitudinal and transverse images of the right upper quadrant of the abdomen were acquired utilizing a curved array transducer. Images were reviewed on a high-resolution PACS workstation. COMPARISON: None FINDINGS: The liver is enlarged and normal in echogenicity. There is no focal hepatic lesion. Color Doppler and pulsed Doppler sonography demonstrate normal antegrade flow in the portal vein. There may be sludge in the gallbladder. The gallbladder is otherwise normal with no stones or wall thickening. There is no pericholecystic fluid collection. The bile ducts are normal with the common bile duct measuring 5.8 mm in diameter. The visualized portions of the pancreas are unremarkable with obscuration of the tail of the pancreas. No free fluid is present. The right kidney measures 10.6 cm. There is normal echogenicity of the right kidney. There is no perinephric fluid collection. No hydronephrosis, mass, or calculus is seen. IMPRESSION: 1. Hepatomegaly. 2. Possible sludge in the gallbladder. 3. Otherwise unremarkable right upper quadrant abdomen ultrasound. RPTAT: QQ .Rogerio Quiros MD, MD Date Time Electronically viewed and signed by .Rogerio Quiros MD, MD on 02/03/2017 07:48 .R/ CC: MENDY NASSAR MD PROCEDURE: CT Brain without contrast. CLINICAL INDICATION: Seizures. Hypertension. TECHNIQUE: A CT of the brain was performed on a multidetector CT scanner utilizing axial imaging from the skull base through the vertex without IV contrast. Multiplanar reformatted images were made. Images were reviewed on a PACS workstation. The CTDIvol is 45 mGy and the DLP is 720 mGycm. DICOM images are available. One or more of the following dose reduction techniques were utilized: 1.) Automated exposure control 2.) Adjustment of the mA +/- kV according to patient's size 3.) Use of iterative reconstruction technique. COMPARISON: None FINDINGS: There is no intracranial hemorrhage, mass effect, or midline shift. No extra- axial fluid collection is seen. The ventricles and sulci are normal in size and configuration. The density of the brain is normal, and the ribera white matter differentiation appears well-preserved. The visualized osseous structures are grossly unremarkable. Polyp or mucous retention cyst is present in the left maxillary sinus. IMPRESSION: 1. No evidence of acute intracranial pathology. 2. The brain is normal in appearance. .Herrera Garnica MD MD Date Time Electronically viewed and signed by .Herrera Garnica MD, MD on 02/02/2017 22: 48 .A/ CC: JESSICA DURBIN BOLATITO M. Feb 03, 2017 11:42
[2017-02-03] MEDS ORDERED: MAGNESIUM SULFATE 4 GM in DEXTROSE 5% 100 ML IV ONE (12:30)
--- NOTE | 2017-02-03 12:34 | PN ---
Date/Time of Note Date/Time of Note DATE: 02/03/17 TIME: 12:24 OB Subjective Subjective Subjective Patient had hypertension crisis last night. She had severe headache The hospitalist was called in Phone orders were given Her laboratory testing were ordered and CT scan of the brain and liver ultrasound was done that were normal today Today she is more controlled, her blood pressure is acceptable Still with headaches. Reflexes are 3+ for which I am going to start her on magnesium sulfate again for 24 hours and then switch her to p.o. Dilantin if it is possible She has no blurred vision or epigastric pain today She has no edema No vision disturbances Hospitalist called in for consultation .severe preeclampsia was diagnosed OB Objective HEENT: WNL Heart: Rhythm Normal Lungs: Clear, Equal Abdomen: WNL Extremities: Normal Reflexes: Normal MENDY NASSAR MD Feb 03, 2017 12:34
[2017-02-03] MEDS ORDERED: MAGNESIUM SULFATE 2 GM/50 ML 50 ML IVPB SCH (13:00)
[2017-02-03] MEDS ORDERED: POTASSIUM CHLORIDE (SR) 20 MEQ TAB PO SCH (13:00)
[2017-02-03] MEDS: NIFEdipine (XL) 30 MG TAB PO SCH ×2 (13:07→22:19)
[2017-02-03 13:42] LABS: POTASSIUM 3.7 mmol/L (3.5-5.1)
[2017-02-03] MEDS: MAGNESIUM SULFATE 20 GM/500 ML 500 ML IV SCH (14:34)
[2017-02-03] MEDS ORDERED: GLUCAGON 1 MG INJ IM PRN (15:30)
[2017-02-03] MEDS ORDERED: GLUCOSE GEL 15 GRAM TUBE PO PRN ×2 (15:30)
[2017-02-03] MEDS ORDERED: DEXTROSE 50% 50 ML SYRINGE IV PRN ×2 (15:30)
[2017-02-03] MEDS ORDERED: GLUCOSE GEL 15 GRAM TUBE BUCCAL PRN (15:30)
[2017-02-03] MEDS: INSULIN ASPART [NOVOLOG] 3 ML PEN SC SCH ×2 (17:34→21:00)
[2017-02-04] VITALS (14 sets, daily range): BP systolic 106–144; BP diastolic 74–88; PULSE 71–85; RESP 16–21
[2017-02-04] MEDS ORDERED: hydrALAzine 20 MG INJ IV PRN
[2017-02-04] MEDS: MAGNESIUM SULFATE 20 GM/500 ML 500 ML IV SCH ×2 (01:07→11:20)
[2017-02-04] MEDS: ACCU-CHEK XX SCH (01:08)
[2017-02-04] MEDS: IBUPROFEN 800 MG TAB PO SCH ×3 (05:26→21:37)
[2017-02-04 05:43] LABS: INR 0.93; PROTIME 12.5 Sec (11.9-14.9)
[2017-02-04 05:57] LABS: POTASSIUM 3.3 mmol/L (3.5-5.1)
[2017-02-04 05:58] LABS: ALBUMIN 2.8 g/dl (3.3-4.9); BILIRUBIN,INDIRECT 0.2 mg/dl (0-1.1); BILIRUBIN,TOTAL 0.2 mg/dl (0.2-1.3); TOTAL PROTEIN 5.6 g/dl (6.1-8.1)
[2017-02-04 06:02] LABS: CALCIUM 7.3 mg/dl (8.4-10.2); CREATININE 0.61 mg/dl (0.44-1.00); POTASSIUM 3.3 mmol/L (3.5-5.1)
[2017-02-04 06:48] LABS: FIBRIN SPLIT PRODUCT <10 ug/ml (<10)
[2017-02-04] MEDS: INSULIN ASPART [NOVOLOG] 3 ML PEN SC SCH ×4 (08:00→20:39)
[2017-02-04] MEDS: SENNA/DOCUSATE NA (8.6MG/50MG) TAB PO SCH ×2 (08:58→20:48)
[2017-02-04] MEDS: LABETALOL 200 MG TAB PO SCH ×3 (08:59→21:38)
[2017-02-04] MEDS: NIFEdipine (XL) 30 MG TAB PO SCH ×2 (08:59→20:48)
[2017-02-04] MEDS ORDERED: POTASSIUM CHLORIDE 20 MEQ POWDER FOR ORAL SOLN PO ONE (11:30)
--- NOTE | 2017-02-04 12:22 | PN ---
Date/Time of Note Date/Time of Note DATE: 02/04/17 TIME: 12:17 OB Subjective Subjective Subjective no c/o headache c/o dizziness OB Objective Objective Objective b.p 130-140/mid 80's afebrile lochia min calf neg for tenderness mg level 5.8 HEENT: WNL Heart: Rhythm Normal Lungs: Clear, Equal Abdomen: WNL Extremities: Normal Reflexes: Normal OB Assessment/Plan Other Assessment: stable post #5 Other plan: per her OB AJAY DURBIN MD Feb 04, 2017 12:22
--- NOTE | 2017-02-04 13:54 | PN ---
Date/Time of Note Date/Time of Note DATE: 02/04/17 TIME: 13:53 Assessment/Plan VTE Prophylaxis VTE Prophylaxis Intervention: ambulation, SCD's Lines/Catheters IV Catheter Type (from Nrsg): Peripheral IV Urinary Cath still in place: Yes Reason Cath still needed: urinary retention Assessment/Plan Chief Complaint/Hosp Course Subjective No acute complaints Objective Physical exam General: Patient is laying in bed and answers questions appropriately Mentation: Patient is alert and oriented 4, Head: Normocephalic atraumatic Eyes: EOMI, pupils reactive to light Neck: Supple, nontender, midline Respiratory: Clear to auscultation bilaterally Cardiovascular: regular rate, no obvious murmurs Gastrointestinal: non-tender to palpation, bowel sounds heard. 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 Gestational diabetes -Diet-controlled Disposition -DC when okay with industrial truck driver Problems: Exam/Review of Systems Vital Signs Vitals Vital Signs Date Time Temp Pulse Resp B/P Pulse Ox O2 Delivery O2 Flow Rate FiO2 02/04/17 12:00 78 02/04/17 08:51 98.4 21 138/82 97 02/04/17 08:49 Nasal Cannula 2.0 Intake and Output 02/03/17 02/03/17 02/04/17 15:00 23:00 07:00 Intake Total 1075 ml 1250 ml Output Total 900 ml 1100 ml Balance 175 ml 150 ml Results Result Diagram: 02/02/17 2227 02/04/17 0506 Results 24 hrs Laboratory Tests Test 02/03/17 17:16 02/03/17 18:22 02/03/17 22:24 02/04/17 00:47 Bedside Glucose 99 106 Magnesium Level 4.4 H 4.8 H Test 02/04/17 05:06 02/04/17 08:26 02/04/17 12:03 02/04/17 12:17 Prothrombin Time 12.5 Prothrombin Time Ratio 1.0 INR International Normalized Ratio 0.93 Activated Partial Thromboplast Time 25.0 Plasma Fibrin Degradation Products <10 Sodium Level 137 Potassium Level 3.3 L Chloride Level 101 Carbon Dioxide Level 29 Anion Gap 10 Blood Urea Nitrogen 6 L Creatinine 0.61 Glucose Level 106 Calcium Level 7.3 L Magnesium Level 5.8 *H 5.9 *H Total Bilirubin 0.2 Direct Bilirubin 0.00 Indirect Bilirubin 0.2 Aspartate Amino Transf (AST/SGOT) 46 Alanine Aminotransferase (ALT/SGPT) 82 H Alkaline Phosphatase 142 H Total Protein 5.6 L Albumin 2.8 L Bedside Glucose 120 95 Medications Medications Current Medications Naloxone HCl (Narcan) 0.2 mg Q2M PRN IV FOR RESP RATE 8 OR LESS; Start at 19:00 Ondansetron HCl (Zofran Inj) 4 mg Q4H PRN IV NAUSEA AND/OR VOMITING Last administered on 02/02/17 23:17; Admin Dose 4 MG; Start 01/30/17 at 21:00 Lidocaine 30 ml 30 ml ONCE PRN INJ EPISIOTOMY/TEARING; Start 01/30/17 at 23:30 Oxytocin/Lactated Ringer's 500 ml @ 125 mls/hr ONCE IV Last administered on 00:15; Admin Dose 125 MLS/HR; Start 01/30/17 at 23:30 Oxytocin/Lactated Ringer's 500 ml @ 0 mls/hr ONCE PRN IV For Hemorrhage Management; Start 01/30/17 at 23:30 Ibuprofen (Motrin) 600 mg ONCE PRN PO Mild Pain (Pain Score 1-3); Start at 23:30 Oxycodone/ Acetaminophen (Percocet (5/ 325)) 2 tab ONCE PRN PO Moderate to Severe Pain (4-10) Last administered on 02/02/17 01:56; Admin Dose 2 TAB; Start 01/30/17 at 23:30 Acetaminophen (Tylenol Tab) 650 mg Q4H PRN PO PAIN LEVEL 1-5; Start 01/31/17 at 00:30 Acetaminophen/ Hydrocodone Bitart ([place] (5/325)) 1 tab Q4H PRN PO PAIN LEVEL 1 -5 Last administered on 02/03/17 13:17; Admin Dose 1 TAB; Start 01/31/17 at 00: 30 Acetaminophen/ Hydrocodone Bitart ([place] (5/325)) 2 tab Q4H PRN PO PAIN LEVEL 6 -10 Last administered on 02/03/17 18:18; Admin Dose 2 TAB; Start 01/31/17 at 00 :30 Ondansetron HCl (Zofran Inj) 4 mg Q6H PRN IV NAUSEA AND/OR VOMITING Last administered on 02/02/17 22:00; Admin Dose 4 MG; Start 01/31/17 at 00:30 Diphenhydramine HCl (Benadryl) 25 mg Q6H PRN PO PRURITUS; Start 01/31/17 at 00: 30 Senna/Docusate Sodium (Senokot-S) 1 tab BID PO Last administered on 02/04/17 08:58; Admin Dose 1 TAB; Start 01/31/17 at 09:00 Acetaminophen 650 mg 650 mg Q4H PRN PO ELEVATED TEMPERATURE; Start 01/31/17 at 00:30 Oxytocin/Lactated Ringer's 500 ml @ 0 mls/hr ONCE PRN IV For Hemorrhage Management; Start 01/31/17 at 00:30 Methylergonovine Maleate (Methergine) 0.2 mg ONCE PRN [place] VAGINAL BLEEDING; Start 01/31/17 at 00:30 Carboprost Tromethamine (Hemabate) 250 mcg ONCE PRN IM VAGINAL BLEEDING; Start 01/31/17 at 00:30 Misoprostol (Cytotec) 1,000 mcg ONCE PRN [place] VAGINAL BLEEDING; Start 01/31/17 at 00:30 Al Hydrox/Mg Hydrox/Simethicone (Mag-Al Plus) 30 ml Q6H PRN PO GASTROINTESTINAL UPSET Last administered on 02/01/17 13:56; Admin Dose 30 ML; Start 02/01/17 at 14:00 Nifedipine (Procardia Xl) 30 mg BID PO Last administered on 02/04/17 08:59; Admin Dose 30 MG; Start 02/03/17 at 12:00 Ibuprofen (Motrin) 800 mg Q8 PO Last administered on 02/04/17 13:47; Admin Dose 800 MG; Start 02/03/17 at 22:00 Labetalol HCl 200 mg 200 mg TID PO Last administered on 02/04/17 13:47; Admin Dose 200 MG; Start 02/03/17 at 14:00 Magnesium Sulfate (Magnesium Sulfate 20 Gm/500 ml) 500 ml @ 50 mls/hr Q10H IV Last administered on 02/04/17 11:20; Admin Dose 50 MLS/HR; Start 02/03/17 at 15 :00; Stop 02/04/17 at 14:59 Diagnostic Test (Pha) (Accu-Chek) 1 ea 02 XX ; Start 02/04/17 at 02:00 Miscellaneous Information 1 ea NOTE XX ; Start 02/03/17 at 15:30 Glucose (Glutose) 15 gm Q15M PRN PO DECREASED GLUCOSE; Start 02/03/17 at 15:30 Glucose (Glutose) 22.5 gm Q15M PRN PO DECREASED GLUCOSE; Start 02/03/17 at 15: 30 Dextrose (D50w Syringe) 25 ml Q15M PRN IV DECREASED GLUCOSE; Start 02/03/17 at 15:30 Dextrose (D50w Syringe) 50 ml Q15M PRN IV DECREASED GLUCOSE; Start 02/03/17 at 15:30 Glucagon (Glucagen) 1 mg Q15M PRN IM DECREASED GLUCOSE; Start 02/03/17 at 15:30 Glucose (Glutose) 15 gm Q15M PRN BUCCAL DECREASED GLUCOSE; Start 02/03/17 at 15 :30 Hydralazine HCl (Apresoline) 20 mg Q4H PRN IV ELEVATED SYSTOLIC BP; Start 02/04 at 00:00 NISHI ESPINOZA Feb 04, 2017 13:54
[2017-02-05] VITALS (10 sets, daily range): BP systolic 130–150; BP diastolic 76–85; PULSE 64–77; RESP 19–21
[2017-02-05] MEDS: ACCU-CHEK XX SCH (02:00)
[2017-02-05] MEDS: IBUPROFEN 800 MG TAB PO SCH ×2 (05:28→13:25)
[2017-02-05 06:14] LABS: BASOPHILS % 0.4 % (0.0-2.0); EOSINOPHILS # 0.2 10^3/ul (0.0-0.5); EOSINOPHILS % 2.9 % (0.0-7.0); HEMOGLOBIN 13.5 g/dl (12.0-16.0); LYMPHOCYTES % 12.7 % (15.0-51.0); MEAN CORPUSCULAR HGB CONC 33.8 g/dl (32.0-37.0); MEAN CORPUSCULAR VOLUME 91.7 fl (82.0-101.0); MEAN PLATELET VOLUME 10.6 fl (7.4-10.4); MONOCYTE # 0.7 10^3/ul (0.3-0.9); NEUTROPHIL # 6.2 10^3/ul (1.6-7.5); NEUTROPHILS % 75.6 % (39.0-77.0); PLATELET COUNT 221 10^3/UL (140-415); RED BLOOD COUNT 4.36 10^6/ul (4.20-5.40); RED CELL DISTRIBUTION WIDTH 14.1 % (11.5-14.5); WHITE BLOOD COUNT 8.2 10^3/ul (4.8-10.8)
[2017-02-05 06:53] LABS: CALCIUM 8.3 mg/dl (8.4-10.2); CREATININE 0.6 mg/dl (0.44-1.00); PHOSPHORUS 5.3 mg/dl (2.5-4.9); POTASSIUM 3.8 mmol/L (3.5-5.1)
[2017-02-05] MEDS: INSULIN ASPART [NOVOLOG] 3 ML PEN SC SCH ×2 (08:00→12:00)
[2017-02-05] MEDS: SENNA/DOCUSATE NA (8.6MG/50MG) TAB PO SCH (08:59)
[2017-02-05] MEDS: LABETALOL 200 MG TAB PO SCH ×2 (08:59→13:25)
[2017-02-05] MEDS: NIFEdipine (XL) 30 MG TAB PO SCH (09:00)
--- NOTE | 2017-02-05 12:06 | PN ---
Date/Time of Note Date/Time of Note DATE: 02/05/17 TIME: 12:05 Assessment/Plan VTE Prophylaxis VTE Prophylaxis Intervention: SCD's Lines/Catheters IV Catheter Type (from Nrsg): Peripheral IV Urinary Cath still in place: Yes Reason Cath still needed: urinary retention Assessment/Plan Chief Complaint/Hosp Course Subjective 12.10 feels well Objective Physical exam General: Patient is laying in bed and answers questions appropriately Mentation: Patient is alert and oriented 4, Head: Normocephalic atraumatic Eyes: EOMI, pupils reactive to light Neck: Supple, nontender, midline Respiratory: Clear to auscultation bilaterally Cardiovascular: regular rate, no obvious murmurs Gastrointestinal: non-tender to palpation, bowel sounds heard. Neurological: Moves all extremities spontaneously Skin: No new skin lesions Assessment and plan Severe preeclampsia status post delivery -Magnesium and control blood pressure -Currently well controlled, operations label clerk recommendations appreciated Gestational diabetes -Diet-controlled Disposition -DC when okay with operations label clerk Problems: Exam/Review of Systems Vital Signs Vitals Vital Signs Date Time Temp Pulse Resp B/P Pulse Ox O2 Delivery O2 Flow Rate FiO2 02/05/17 08:22 98.4 76 21 135/83 99 02/05/17 08:00 Nasal Cannula 2.0 Intake and Output 02/04/17 02/04/17 02/05/17 15:00 23:00 07:00 Intake Total 500 ml 400 ml Output Total 2500 ml 2600 ml Balance -2000 ml -2200 ml Results Result Diagram: 02/05/17 0545 02/05/17 0545 Results 24 hrs Laboratory Tests Test 02/04/17 12:17 02/04/17 17:45 02/04/17 18:14 02/04/17 20:38 Bedside Glucose 95 98 109 Magnesium Level 6.0 *H Test 02/05/17 00:39 02/05/17 05:45 02/05/17 08:57 Magnesium Level 3.6 #H 3.1 H White Blood Count 8.2 Red Blood Count 4.36 Hemoglobin 13.5 Hematocrit 40.0 Mean Corpuscular Volume 91.7 Mean Corpuscular Hemoglobin 31.0 Mean Corpuscular Hemoglobin Concent 33.8 Red Cell Distribution Width 14.1 Platelet Count 221 Mean Platelet Volume 10.6 H Neutrophils % 75.6 Lymphocytes % 12.7 L Monocytes % 8.0 Eosinophils % 2.9 Basophils % 0.4 Nucleated Red Blood Cells % 0.0 Neutrophils # 6.2 Lymphocytes # 1.0 Monocytes # 0.7 Eosinophils # 0.2 Basophils # 0.0 Nucleated Red Blood Cells # 0.0 Sodium Level 139 Potassium Level 3.8 Chloride Level 105 Carbon Dioxide Level 29 Anion Gap 9 Blood Urea Nitrogen 9 Creatinine 0.60 Glucose Level 84 Calcium Level 8.3 L Phosphorus Level 5.3 H Bedside Glucose 81 Medications Medications Current Medications Naloxone HCl (Narcan) 0.2 mg Q2M PRN IV FOR RESP RATE 8 OR LESS; Start at 19:00 Ondansetron HCl (Zofran Inj) 4 mg Q4H PRN IV NAUSEA AND/OR VOMITING Last administered on 02/02/17 23:17; Admin Dose 4 MG; Start 01/30/17 at 21:00 Lidocaine 30 ml 30 ml ONCE PRN INJ EPISIOTOMY/TEARING; Start 01/30/17 at 23:30 Oxytocin/Lactated Ringer's 500 ml @ 125 mls/hr ONCE IV Last administered on 00:15; Admin Dose 125 MLS/HR; Start 01/30/17 at 23:30 Oxytocin/Lactated Ringer's 500 ml @ 0 mls/hr ONCE PRN IV For Hemorrhage Management; Start 01/30/17 at 23:30 Ibuprofen (Motrin) 600 mg ONCE PRN PO Mild Pain (Pain Score 1-3); Start at 23:30 Oxycodone/ Acetaminophen (Percocet (5/ 325)) 2 tab ONCE PRN PO Moderate to Severe Pain (4-10) Last administered on 02/02/17 01:56; Admin Dose 2 TAB; Start 01/30/17 at 23:30 Acetaminophen (Tylenol Tab) 650 mg Q4H PRN PO PAIN LEVEL 1-5; Start 01/31/17 at 00:30 Acetaminophen/ Hydrocodone Bitart ([place] (5/325)) 1 tab Q4H PRN PO PAIN LEVEL 1 -5 Last administered on 02/03/17 13:17; Admin Dose 1 TAB; Start 01/31/17 at 00: 30 Acetaminophen/ Hydrocodone Bitart ([place] (5/325)) 2 tab Q4H PRN PO PAIN LEVEL 6 -10 Last administered on 02/03/17 18:18; Admin Dose 2 TAB; Start 01/31/17 at 00 :30 Ondansetron HCl (Zofran Inj) 4 mg Q6H PRN IV NAUSEA AND/OR VOMITING Last administered on 02/02/17 22:00; Admin Dose 4 MG; Start 01/31/17 at 00:30 Diphenhydramine HCl (Benadryl) 25 mg Q6H PRN PO PRURITUS; Start 01/31/17 at 00: 30 Senna/Docusate Sodium (Senokot-S) 1 tab BID PO Last administered on 02/05/17 08:59; Admin Dose 1 TAB; Start 01/31/17 at 09:00 Acetaminophen 650 mg 650 mg Q4H PRN PO ELEVATED TEMPERATURE; Start 01/31/17 at 00:30 Oxytocin/Lactated Ringer's 500 ml @ 0 mls/hr ONCE PRN IV For Hemorrhage Management; Start 01/31/17 at 00:30 Methylergonovine Maleate (Methergine) 0.2 mg ONCE PRN IM VAGINAL BLEEDING; Start 01/31/17 at 00:30 Carboprost Tromethamine (Hemabate) 250 mcg ONCE PRN IM VAGINAL BLEEDING; Start 01/31/17 at 00:30 Misoprostol (Cytotec) 1,000 mcg ONCE PRN [place] VAGINAL BLEEDING; Start 01/31/17 at 00:30 Al Hydrox/Mg Hydrox/Simethicone (Mag-Al Plus) 30 ml Q6H PRN PO GASTROINTESTINAL UPSET Last administered on 02/01/17 13:56; Admin Dose 30 ML; Start 02/01/17 at 14:00 Nifedipine (Procardia Xl) 30 mg BID PO Last administered on 02/05/17 09:00; Admin Dose 30 MG; Start 02/03/17 at 12:00 Ibuprofen (Motrin) 800 mg Q8 PO Last administered on 02/05/17 05:28; Admin Dose 800 MG; Start 02/03/17 at 22:00 Labetalol HCl (Normodyne) 200 mg TID PO Last administered on 02/05/17 08:59; Admin Dose 200 MG; Start 02/03/17 at 14:00 Diagnostic Test (Pha) (Accu-Chek) 1 ea 02 XX ; Start 02/04/17 at 02:00 Miscellaneous Information 1 ea NOTE XX ; Start 02/03/17 at 15:30 Glucose (Glutose) 15 gm Q15M PRN PO DECREASED GLUCOSE; Start 02/03/17 at 15:30 Glucose (Glutose) 22.5 gm Q15M PRN PO DECREASED GLUCOSE; Start 02/03/17 at 15: 30 Dextrose (D50w Syringe) 25 ml Q15M PRN IV DECREASED GLUCOSE; Start 02/03/17 at 15:30 Dextrose (D50w Syringe) 50 ml Q15M PRN IV DECREASED GLUCOSE; Start 02/03/17 at 15:30 Glucagon (Glucagen) 1 mg Q15M PRN IM DECREASED GLUCOSE; Start 02/03/17 at 15:30 Glucose (Glutose) 15 gm Q15M PRN BUCCAL DECREASED GLUCOSE; Start 02/03/17 at 15 :30 Hydralazine HCl (Apresoline) 20 mg Q4H PRN IV ELEVATED SYSTOLIC BP; Start 02/04 at 00:00 NISHI ESPINOZA Feb 05, 2017 12:06
--- NOTE | 2017-02-05 13:26 | DS ---
Date/Time of Note Date/Time of Note DATE: 02/05/17 TIME: 13:13 Obstetrical Discharge Record Final Diagnosis Final Diagnosis: Term delivered Other Final Diagnosis Severe preeclampsia Vaginal Delivery Obstetrical Delivery: Spontaneous Other Delivery information This patient was induced and delivered vaginally due to severe preeclampsia She was given the IV magnesium sulfate during the delivery time and and also labetalol She was stable on her second day and she was discharged home but later on the discharge was held due to worsening of her blood pressure She was becoming severe preeclamptic again for which the hospitalist was consulted and magnesium sulfate was given She started having headaches that were severe also with hyperreflexia Everything was controlled after magnesium sulfate hydralazine and labetalol Internal medicine consultation change hydralazine for Procardia Today she is better stable having no headaches dizziness epigastric pain or any visual disturbances Reflexes are 3+ after magnesium sulfate was discontinued yesterday Dilantin was added to her regimen of Procardia XL and labetalol This combination seems to work well she has no headaches no problems no epigastric pain no active bleeding Lochia is normal and uterus is contracted. Her laboratory testing were becoming normal again after platelets were decreased they are normal today We will check a phosphorus and calcium in the office in a week She has no edema She feels well She wishes to go home. Instructions were given to her family has been [id number] on the phone and patient herself They all seem to understand the process and problems of severe preeclampsia Warning signs were explained to all of them She is going home with instructions of calling me or coming in if having headaches dizziness epigastric pain or not feeling well Otherwise she will see me in the office in 1 week She is going home on labetalol Procardia XL and Dilantin for bedrest at home She is discharged stable and in good conditions Complications Preg induced Hypertension Induction: Yes Tocolytics: Magnesium Sulfate Condition on Discharge Physical Assessment Last Vitals: the patient is stable with blood pressures that are within normal limits under 2 blood pressure medication Procardia XL and labetalol 200 mg twice daily, both of them she was given magnesium sulfate which was DC'd yesterday. her reflexes are still hyper and Dilantin was added. Voiding: Yes Bowel Movement: Yes Breast: Soft, non-tender, Filling Fundus: Firm Calf Tenderness: No Patient Condition: Good MENDY NASSAR MD Feb 05, 2017 13:23
== END 2017-02-05 15:54 | disposition home or self-care (01) | DRG 774 ==
LOC: L-D 11:24 → PP1 01-31 02:21 → MS4 02-02 23:03 → EDSTATUS 02-08 11:04
PROVIDERS: ADMIT Obstetrics & Gynecology; ATTEND Obstetrics & Gynecology
PROC: 10E0XZZ Delivery of Products of Conception, External Approach (ICD-10-PCS; principal; 2017-01-30)
PROC: 0KQM0ZZ Repair Perineum Muscle, Open Approach (ICD-10-PCS; 2017-01-30)
PROC: 3E033VJ Introduction of Other Hormone into Peripheral Vein, Percutaneous Approach (ICD-10-PCS; 2017-01-30)
DX: O14.13 Severe pre-eclampsia, third trimester (principal); R16.0 Hepatomegaly, not elsewhere classified; I16.9 Hypertensive crisis, unspecified; O24.420 Gestational diabetes mellitus in childbirth, diet controlled; O99.89 Other specified diseases and conditions complicating pregnancy, childbirth and the puerperium; Z37.0 Single live birth; Z3A.38 38 weeks gestation of pregnancy; O70.1 Second degree perineal laceration during delivery
CPT/HCPCS: 62319; 70450; 76705; 76815; 76818; 80048; 80051; 80053; 80076; 81001; 82947; 82962; 83735; 84100; 84560; 85025; 85362; 85384; 85610; 85730; 86592; 86850; 86900; 86901; 87340; 90686; 90715; 90716; G0378; J0360; J0595; J1815; J2405; J2590; J3010; J3475; J3480; J7120; J7121